=== PATIENT | male | born 2000 | race African-American/Black ===

== ENCOUNTER 2021-01-25 06:35 | Emergency (ER) | payer OTHER, SELFPAY ==
--- NOTE | 2021-01-25 | ECG_ITS ---
Test Reason : palpitations Blood Pressure : / mmHG Vent. Rate : 059 BPM Atrial Rate : 059 BPM P-R Int : 122 ms QRS Dur : 102 ms QT Int : 402 ms P-R-T Axes : 046 081 055 degrees QTc Int : 397 ms Sinus bradycardia Otherwise normal ECG No previous ECGs available Referred By: Benton Resendiz Electronically Signed By:YVONNE HERNANDEZ
--- NOTE | ~2021-01-25 | XR_ITS ---
EXAMINATION: XR CHEST CLINICAL INFORMATION: Cough COMPARISON: None TECHNIQUE: Frontal view of the chest was obtained. FINDINGS: The cardiac and mediastinal contours are normal. The lungs are well inflated. The lungs are clear. There is no pleural effusion or pneumothorax. Bony structures are unremarkable. XR/XR chest 1V IMPRESSION: Well-inflated lungs. No evidence for acute disease in the chest.
[2021-01-25 06:35] VITALS: BP 128/110; PULSE 93; O2SAT 95; BMI 21.7
--- NOTE | 2021-01-25 07:50 | ED.NAVMDI ---
HPI - Nausea/Vomiting/Diarrhea General Chief complaint: Nausea/Vomiting/Diarrhea Stated complaint: panic attack Time Seen by Provider: 01/25/21 07:46 Source: patient and EMS Mode of arrival: EMS Limitations: no limitations History of Present Illness HPI Narrative: This is a 20-year-old male came in for evaluation of persistent vomiting. This is a 20-year-old male who smokes marijuana and regular cigarettes daily, patient claimed that after he smokes marijuana he get this bodes of nausea and vomiting, patient came in today with nausea and vomiting with upper epigastric abdominal pain, patient also feels like his chest is closing up. In the emergency department patient was dry heaving, claimed that he vomited in the bathroom with streaks of blood, symptoms started last night after he smoked marijuana, patient declined using alcohol. Patient had 2 other episodes of similar symptoms over the past 3 weeks usually after he smokes marijuana. Related Data Allergies Allergy/AdvReac Type Severity Reaction Status Date / Time No Known Allergies Allergy Verified 01/25/21 07:49 Review of Systems Review of Systems: All other systems are reviewed and are negative Constitutional: Reports as per HPI and Reports no additional constitutional complaints Eyes: Reports as per HPI and Reports no additional eye complaints Reports system reviewed and no additional complaints, except as documented Cardiovascular: Reports as per HPI and Reports no additional cardiovascular complaints Respiratory: Reports as per HPI and Reports no additional respiratory complaints Gastrointestinal: Reports as per HPI and Reports no additional gastrointestinal complaints Genitourinary: Reports no additional female genitourinary complaints Musculoskeletal: Reports no additional musculoskeletal complaints Skin/Breast: Reports system reviewed and no additional complaints, except as docu Psychiatric: Reports no additional psychiatric complaints Endocrine: Reports no additional endocrine complaints Hematologic/Lymphatic: Reports no additional hematologic/lymphatic complaints Allergic/Immunologic: Reports no additional allergic/immunologic complaints Reports system reviewed and no additional complaints, except as documented and Reports Abnormal speech present [facility] Social History Social History Advance Directives: No Advance Directives Information Provided: No Physical Exam Vital Signs: Vital Signs: Last Vital Signs Pulse 72 01/25/21 13:51 Resp 18 01/25/21 14:00 BP 95/50 L 01/25/21 13:51 Pulse Ox 99 01/25/21 13:51 Body Mass Index 21.7 Vital signs have been reviewed as appeared to be correct. Blood pressure normal. Heart rate normal. Respiration rate normal. Temperature normal. Oxygen saturation normal. Appearance: Alert. Oriented X3. No acute distress. Head: Normal external exam. Normocephalic. Atraumatic. No Snatos signs noted. No raccoon eyes noted Eyes: PERRLA. EOMI. Conjunctiva and sclera normal. Eyelids normal. ENT: TM's Normal. Pharynx normal. Uvula midline. Moist mucous membranes. No trismus noted. No drooling noted. No muffled voice noted. Neck: Normal inspection. Neck supple. FROM. No adenopathy. Thyroid Normal. No meningeal signs. No neck mass noted. CVS: Normal heart rate and rhythm. Heart sound normal. No murmurs noted. Pulses normal throughout. Respiratory: No respiratory distress. Painless inspiration. Breath sounds normal. No wheezes/rales/rhonchi noted. Chest nontender. No accessory muscle usage noted or decreased air movement noted. Abdomen: Soft, mild tenderness over epigastric area, no guarding, no rebound.. Bowel sounds normal in all 4 quadrants. No distention noted. No organomegaly noted. No visible injury noted. Back: No CVA tenderness. Full range of motion noted. Skin: Skin warm and dry. Normal skin color. Normal skin turgor. No rashes/lesions/lacerations noted. Extremities: No lower extremity edema. Extremities exhibit normal range of motion. Extremities nontender. Neuro: Oriented X 3. No motor deficit. No sensory deficit. Reflexes normal. Course Course Course Narrative: Assessment and plan. A 20-year-old male came in with vomiting and feeling chest pain after smoking marijuana. Patient was observed in the emergency department for several hours had unremarkable labs, patient appeared very anxious patient refuse to keep the IV Hep-Lock while in the emergency department (do not like needles), patient was dry heaving keep complaining of chest pain, patient had an EKG was unremarkable, had (-) 2 troponins, a negative chest x-ray. Was given 1 mg of Ativan IV which finally helped to calm down the patient, patient is sleeping now, no vomiting. Patient declined SI or hallucination. Will discharge to follow-up with PCP. MDM - Nausea/Vomiting/Diarrhea Lab Data Attestation: I reviewed the patient's lab results. Result diagrams: 01/25/21 08:33 01/25/21 08:33 Labs: Lab Results 01/25/21 01/25/21 01/25/21 Range/Units 08:33 08:33 08:33 WBC 7.9 (4.8-10.8) X10*3/uL RBC 4.55 L (4.60-5.80) X10*6/uL Hgb 13.5 L (14.0-18.0) g/dl Hct 39.9 L (42-52) % MCV 87.7 (80-98) fL MCH 29.7 (27.0-33.0) pg MCHC 33.8 (31.0-36.0) g/dl RDW 13.1 (11.0-16.0) % Plt Count 228 (160-400) X10*3/uL MPV 9.6 (9.4-12.4) fL Immature Gran % (Auto) 0.3 (0.0-0.4) % Neut % (Auto) 71.0 (45-73) % Lymph % (Auto) 20.3 (20-40) % [place] % (Auto) 8.0 (2-11) % Eos % (Auto) 0.1 (0-4) % Baso % (Auto) 0.3 (0-2) % Lymph # (Auto) 1.6 (1.2-4.9) X10*3/uL [place] # (Auto) 0.6 (0.1-1.2) X10*3/uL Eos # (Auto) 0.0 (0.0-0.4) X10*3/uL Baso # (Auto) 0.0 (0.0-0.2) X10*3/uL Abs Immat Gran (auto) 0.02 (0.00-0.03) X10*3/uL Absolute Neuts (auto) 5.6 (2.0-8.3) X10*3/uL Absolute Nucleated RBC 0.000 (0.0-0.012) X10*3/uL Nucleated RBC % (auto) 0.0 (0.0-0.2) /100WBC Sodium 142 (135-145) mmol/L Potassium 3.6 (3.3-5.1) mmol/L Chloride 105 (96-108) mmol/L Carbon Dioxide 27 (22-29) mmol/L Anion Gap 14 (12-20) BUN 15 (9-16) mg/dL Creatinine 1.20 (0.5-1.4) mg/dL Estim Creat Clear Calc 101.6 Estimated GFR > 60 Random Glucose 97 (60-115) mg/dL Calcium 10.3 H (8.4-10.2) mg/dL Total Bilirubin 0.7 (0.0-1.0) mg/dL Direct Bilirubin 0.3 (0.0-0.5) mg/dL AST 18 (5-37) U/L ALT 11 (0-40) U/L Alkaline Phosphatase 83 (39-117) U/L Troponin I High Sens (<3.5-35.0) ng/L Total Protein 8.0 (6.5-8.0) g/dL Albumin 4.9 (3.5-5.0) g/dL Lipase 27 (8-78) U/L COVID-19 (ANGELICA) Negative (Negative) COVID-19 Clin Com See Note 01/25/21 01/25/21 Range/Units 08:33 12:18 WBC (4.8-10.8) X10*3/uL RBC (4.60-5.80) X10*6/uL Hgb (14.0-18.0) g/dl Hct (42-52) % MCV (80-98) fL MCH (27.0-33.0) pg MCHC (31.0-36.0) g/dl RDW (11.0-16.0) % Plt Count (160-400) X10*3/uL MPV (9.4-12.4) fL Immature Gran % (Auto) (0.0-0.4) % Neut % (Auto) (45-73) % Lymph % (Auto) (20-40) % [place] % (Auto) (2-11) % Eos % (Auto) (0-4) % Baso % (Auto) (0-2) % Lymph # (Auto) (1.2-4.9) X10*3/uL [place] # (Auto) (0.1-1.2) X10*3/uL Eos # (Auto) (0.0-0.4) X10*3/uL Baso # (Auto) (0.0-0.2) X10*3/uL Abs Immat Gran (auto) (0.00-0.03) X10*3/uL Absolute Neuts (auto) (2.0-8.3) X10*3/uL Absolute Nucleated RBC (0.0-0.012) X10*3/uL Nucleated RBC % (auto) (0.0-0.2) /100WBC Sodium (135-145) mmol/L Potassium (3.3-5.1) mmol/L Chloride (96-108) mmol/L Carbon Dioxide (22-29) mmol/L Anion Gap (12-20) BUN (9-16) mg/dL Creatinine (0.5-1.4) mg/dL Estim Creat Clear Calc Estimated GFR Random Glucose (60-115) mg/dL Calcium (8.4-10.2) mg/dL Total Bilirubin (0.0-1.0) mg/dL Direct Bilirubin (0.0-0.5) mg/dL AST (5-37) U/L ALT (0-40) U/L Alkaline Phosphatase (39-117) U/L Troponin I High Sens < 3.5 < 3.5 (<3.5-35.0) ng/L Total Protein (6.5-8.0) g/dL Albumin (3.5-5.0) g/dL Lipase (8-78) U/L COVID-19 (ANGELICA) (Negative) COVID-19 Clin Com Imaging Data Chest x-ray: Radiologist's impression: Well inflated lungs. No evidence for acute disease in the chest. ECG Data Interpretation: Normal sinus rhythm at 60 beats per minute, normal axis deviation, normal interval except slight widening of the QRS, no ST-T changes. Discharge Plan Discharge Clinical Impression: Anxiety Patient Disposition: Home, Self-Care Instructions: Anxiety in Adolescents (ED) Referrals: Physician,None [Primary Care Provider] - 2 days
[2021-01-25 08:00] VITALS: BP 102/67; PULSE 73; RESP 18; O2SAT 98
[2021-01-25] MEDS: ondansetron HCL 4 MG/2 ML VIAL IVPUSH (08:40)
[2021-01-25] MEDS: 0.9 % Sodium Chloride 1,000 ML 999 ML IVCONT (08:40)
[2021-01-25] MEDS: Magnesium Hydrox/Alum Hydrox 30 ML ORAL.SUSP PO (08:40)
[2021-01-25] MEDS: Famotidine/PF 20 MG/2 ML VIAL IVPUSH (08:40)
[2021-01-25 08:42] LABS: MANUAL DIFF FLAG NO
[2021-01-25 08:45] LABS: Basophils Percent Auto 0.3 % (0-2); Eosinophils Percent Auto 0.1 % (0-4); Hematocrit 39.9 % (42-52); Hemoglobin 13.5 g/dl (14.0-18.0); Imm Gran Abs Auto 0.02 X10*3/uL (0.00-0.03); Imm Gran Pct Auto 0.3 % (0.0-0.4); Lymphocytes Absolute Auto 1.6 X10*3/uL (1.2-4.9); Lymphocytes Percent Auto 20.3 % (20-40); Mean Corpuscular HGB Conc 33.8 g/dl (31.0-36.0); Mean Corpuscular Hemoglobin 29.7 pg (27.0-33.0); Mean Corpuscular Volume 87.7 fL (80-98); Mean Platelet Volume 9.6 fL (9.4-12.4); Monocytes Absolute Auto 0.6 X10*3/uL (0.1-1.2); Neutrophils Absolute Auto 5.6 X10*3/uL (2.0-8.3); Platelet Count 228 X10*3/uL (160-400); Red Blood Count 4.55 X10*6/uL (4.60-5.80); Red Cell Distribution Width 13.1 % (11.0-16.0); White Blood Count 7.9 X10*3/uL (4.8-10.8)
[2021-01-25 09:02] LABS: COVID-19 Test Negative (Negative)
[2021-01-25 09:07] LABS: Alanine Aminotransferase 11 U/L (0-40); Albumin Level 4.9 g/dL (3.5-5.0); Alkaline Phosphatase 83 U/L (39-117); Anion Gap 14 (12-20); Aspartate Amino Transferase 18 U/L (5-37); Bilirubin Direct 0.3 mg/dL (0.0-0.5); Bilirubin Total 0.7 mg/dL (0.0-1.0); Blood Urea Nitrogen 15 mg/dL (9-16); Calcium 10.3 mg/dL (8.4-10.2); Carbon Dioxide 27 mmol/L (22-29); Chloride 105 mmol/L (96-108); Creatinine Clr Calc Pharmacy 101.6; Estimated Glomerular Filt Rate > 60; Glucose Random 97 mg/dL (60-115); Lipase 27 U/L (8-78); Potassium 3.6 mmol/L (3.3-5.1); Sodium 142 mmol/L (135-145)
--- NOTE | 2021-01-25 11:21 | PC.NURSE ---
Pt states he does not want ativan at this time, MD aware. Pt states nausea is better, given small ammount of water for PO Challenge. Will continue to monitor.
[2021-01-25 12:11] LABS: Troponin-I High Sensitivity < 3.5 ng/L (<3.5-35.0)
[2021-01-25 12:49] LABS: Troponin-I High Sensitivity < 3.5 ng/L (<3.5-35.0)
[2021-01-25] MEDS: LORazepam 1 MG TABLET PO (12:52)
[2021-01-25 13:51] VITALS: BP 95/50; PULSE 72; RESP 17; O2SAT 99
[2021-01-25 14:00] VITALS: RESP 18
[2021-01-25 15:54] VITALS: BP 120/64; PULSE 82; RESP 20; TEMP 37.3; O2SAT 100
== END 2021-01-25 16:13 | disposition home or self-care (01) ==
PROVIDERS: Emergency Provider Emergency Medicine
DX: R11.2 Nausea with vomiting, unspecified (principal); F41.1 Generalized anxiety disorder; F43.0 Acute stress reaction; Z20.822 Contact with and (suspected) exposure to COVID-19
CPT/HCPCS: 36415; 71045; 80048; 80076; 83690; 84484; 85025; 87635; 93005; 96365; 96375; 99284; J2405

== ENCOUNTER 2021-01-26 10:05 | Emergency (ER) | payer OTHER, SELFPAY ==
[2021-01-26 10:23] VITALS: BP 129/68; BP 148/92; PULSE 61; PULSE 92; RESP 16; TEMP 36.6; O2SAT 98; BMI 18.6
--- NOTE | 2021-01-26 12:08 | PC.NURSE ---
PT CALLED IN FROM WAITING ROOM, PT UNDER BLANKET SLEEPING IN WAITING ROOM. PT WOKE UP EASILY THEN SLOWLY TOOK OFF HIS BLANKET AND SLOWLY WALKED AWKWARDLY THROUGH WAITING ROOM INTO [facility] BED. PT PACED FOR 2 MINUTES IN [facility] ROOM 4 BEFORE SITTING DOWN ON BED. PT ANSWERS QUESTIONS VERY QUIETLY AND ALMOST INCOMPREHENSIBLY DUE TO QUIET TONE OF VOICE. NO DIFF BREATHING, NO CYANOSIS, NO DIAPHORESIS, NO GUARDING NOTED. AWAITING PRIMARY EVAL BY PROVIDER.
--- NOTE | 2021-01-26 12:22 | ED_ITS ---
HPI - Chest Pain General Chief Complaint: Chest Pain Stated Complaint: diff breathing Time Seen by Provider: 01/26/21 12:22 Source: patient Mode of arrival: ambulatory Limitations: no limitations History of Present Illness HPI narrative: 20-year-old male who denies significant past medical or surgical history he does admit to heavy marijuana use recreationally. He comes in ambulatory today states he has been having numbness and tingling and anxious. States his episodes similar to several previous episodes where he will become overwhelmed and started to have panic like symptoms initially started when he was 18 years old and has been happening more frequently. Does admit to recently getting kicked out of [employer] due to marijuana use and due to the pandemic does not have a job he is constantly looking for interviews and does not want to let his family down states he is constantly thinking about the social burden and sometimes he feels or wound and will start to have panic attacks. States he was here yesterday for same; in fact he was here yesterday for chest pain he had a medical workup including chest x-ray, labs including serial troponin which were unremarkable he was given lorazepam and did well with this. He states he has a primary care doctor not sure what this is but is to [facility] and has not had any psychiatric providers or hospitalizations. He has been to the ER several times over the course of past 3 years. He denies any recent illness. He denies any SI or HI. Does not drink alcohol and denies any other illicit substance use. MD complaint: other (States he will get chest heaviness and numbness and tingling at the tip of his fingers Radha nose, lips and on his legs) Onset (ago): day(s) Onset: other (Emotional upset) Relieving factors: medication-other Exacerbating factors: stress Treatment prior to arrival: none Related Data Allergies Allergy/AdvReac Type Severity Reaction Status Date / Time No Known Allergies Allergy Verified 01/25/21 07:49 Review of Systems Review of Systems: Constitutional: No Weight loss, No Fever, No Chills, No Night Sweats, No Fatigue, No Malaise ENT/Mouth: No Hearing loss, No Ear Pain, No Nasal Congestion, No Sinus Pain, No Hoarseness, No sore throat, No Rhinorrhea, No Swallowing Difficulty Eyes: No Eye Pain, No Swelling, No Redness, No Foreign Body, No Discharge, No Vision Changes Cardiovascular: No Chest Pain, No SOB, No Dyspnea on Exertion, No Orthopnea, No Edema, No Palpitations Respiratory: No Cough, No Sputum, No Wheezing, No Smoke Exposure, No Dyspnea Gastrointestinal: No Nausea, No Vomiting, No Diarrhea, No Constipation, No abdominal Pain, No Hematochezia, No Melena Genitourinary: no irregular bleeding, No Dysuria, No Urinary Frequency, No Hematuria, No Urinary Incontinence, No Urgency, No Flank Pain, No Urinary Flow Changes, No Hesitancy Musculoskeletal: No joint pain, No Myalgias, No Joint Swelling Skin: No Skin Lesions, No rash Neuro: No Weakness, No Numbness, No Paresthesias, No Loss of Consciousness, No Dizziness, No Headache Psych: As noted per HPI Heme/Lymph: No Bruising, No Bleeding,No Lymphadenopathy Endocrine: No Polyuria, No Polydipsia, No Temperature Intolerance Yes all other systems are reviewed and are negative [facility] Social History Social History Advance Directives: No Advance Directives Information Provided: No Physical Exam Vital Signs: Vital Signs: Last Vital Signs Temp 98 F 01/26/21 10:23 Pulse 61 01/26/21 10:23 Resp 16 01/26/21 10:23 BP 129/68 01/26/21 10:23 Pulse Ox 98 01/26/21 10:23 Body Mass Index 18.6 Reviewed Const: Other: Found 20-year-old male with a stuffed animal sitting in the bed twitching his hands and feet. General: cooperative, healthy appearing and anxious; No acute distress or intoxicated appearing Nutritional Appearance: average body habitus Orientation/consciousness: patient oriented x3 HENMT: Head: Yes normal to inspection Ears: hearing grossly normal bilaterally Eyes: General: appearance normal, both eyes and all related structures Visual Truong: normal visual truong by confrontation Neck: Neck: Yes normal visual inspection, No positive Brudzinski's sign, No positive Kernig's sign and No tender Thyroid: Thyroid normal Chest: Chest palpation & inspection: normal inspection of the chest Resp: Effort & Inspection: normal respiratory effort Auscultation: clear to auscultation bilaterally Cardio: Jugular venous distension: no JVD Rhythm: regular rhythm Heart sounds: S1 normal heart sound present and S2 normal heart sound present GI: Inspection: Yes normal to inspection Percussion: Yes normal to percussion Auscultation: normal bowel sounds : General: Yes no CVA tenderness Back/Spine/Pelvis: Back: no CVA tenderness Skin: General skin exam: no rashes or lesions noted Neuro: General: patient oriented x3 Extrem: General: Yes normal to inspection Course Course Course Narrative: Repeat exam consistent with anxiety about both health and social stressors descriptive consistent with panic attacks. Lab work including EKG, chest x-ray reviewed from previous visit given his concern about health I will get screening labs he is very anxious provided reassurance and okay with trialing hydroxyzine 50 mg. He denies any SI or HI. Contracts for safety. I will contact care team for evaluation. Reevaluation(s) Reevaluation #1: friend showed up at bedside care team Abdi met with the patient recommendation for outpatient services and referred to partial program. Soon after his evaluation Abdi patient was noted to walk towards the exit with family prior to discharge and labs. Consultations Consultation #1: Care team Discharge Plan Discharge Clinical Impression: Acute anxiety Patient Disposition: Elopement Interventions: ED Discharge Assessment Last Done: 01/26/21 13:28 Discharge Date/Time: 01/26/21 13:28
[2021-01-26] MEDS: hydrOXYzine HCL 50 MG TABLET PO (13:01)
--- NOTE | 2021-01-26 13:17 | PC.NURSE ---
THIS RN MEDICATED PATIENT WHILE PATIENT AND VISITOR WERE TALKING TO CARE TEAM. THIS RN WENT BACK INTO ROOM 10 MINUTES LATER AND PATIENT WAS GONE. PT WAS SEEN WALKING OUT FRONT DOOR WITH VISITOR AND DID NOT NOTIFY ANYONE HE WAS LEAVING.
--- NOTE | 2021-01-26 13:42 | MHC.CARE ---
1240: Met with pt and pt's Father Clay Tsang Sr at the request of NATY Trent. Pt reports having been experiencing a great deal of pressure lately having been recently terminated from [employer] for smoking marijuana, having issues with a female, conflict with [employer] staff. Pt appears to be experiencing anxiety symptoms and was at the [facility] today for what looked like a panic attack. Pt has experienced these before, recently with the most recent two coming shortly after consuming marijuana secured through traditional means from street contacts. Pt has been referred to [facility] for the purpose of securing a counselor and regular counseling sessions. Pt's Father appears to be supportive of this.
== END 2021-01-26 13:28 | disposition left against medical advice (07) ==
PROVIDERS: Emergency Provider Emergency Medicine
DX: F41.9 Anxiety disorder, unspecified (principal); F12.90 Cannabis use, unspecified, uncomplicated
CPT/HCPCS: 99283

== ENCOUNTER 2021-02-04 22:53 | Emergency (ER) | payer OTHER, SELFPAY ==
[2021-02-04 23:03] VITALS: BP 137/90; PULSE 78; O2SAT 100
[2021-02-04 23:15] VITALS: BP 112/68; PULSE 64; RESP 20; TEMP 36.6; O2SAT 100; BMI 16.7
--- NOTE | 2021-02-04 23:52 | ED.ANXIETY ---
HPI - Anxiety General Chief Complaint: Anxiety Stated Complaint: LT WRIST AND BACK PAIN Time Seen by Provider: 02/04/21 23:34 Source: patient Mode of arrival: ambulatory Limitations: no limitations History of Present Illness HPI narrative: Patient is a 20-year-old male with no significant past medical history who is complaining of feeling short of breath and left-sided back pain. Patient reported to the nurse that he ?feels this way every night at 21:00 , it is when the beast comes out . Patient does admit to smoking cigarettes and marijuana randomly but he states he has this pain even when he is not smoking anything. He describes feeling short of breath is when he takes a deep breath and it is painful. He denies chest pain, abdominal pain, nausea vomiting diarrhea. Denies SI/HI. Pt states we gave him a pill with an off button on it last time he was here and he doesn't want it this time. Related Data Allergies Allergy/AdvReac Type Severity Reaction Status Date / Time No Known Allergies Allergy Verified 01/25/21 07:49 Review of Systems Review of Systems: Yes all other systems are reviewed and are negative [facility] Social History Social History Advance Directives: No Physical Exam Vital Signs: Vital Signs: Last Vital Signs Temp 97.8 F 02/04/21 23:15 Pulse 64 02/04/21 23:15 Resp 20 02/04/21 23:15 BP 112/68 02/04/21 23:15 Pulse Ox 100 02/04/21 23:15 Body Mass Index 16.7 Const: Other: Pt is pacing throughout our discussion. General: cooperative, healthy appearing, comfortable, no acute distress and well developed Orientation/consciousness: patient oriented x3 Limitations: no limitations HENMT: Head: Yes normal to inspection Eyes: General: appearance normal, both eyes and all related structures Neck: Neck: Yes normal visual inspection and Yes full ROM Resp: Effort & Inspection: normal respiratory effort and able to speak in complete sentences Auscultation: clear to auscultation bilaterally Cardio: Rate: regular rate Rhythm: regular rhythm Heart sounds: normal S1 and S2 GI: Inspection: Yes normal to inspection Skin: General skin exam: no rashes or lesions noted Neuro: General: patient oriented x3 Extrem: General: Yes normal to inspection Course Course Course Narrative: Patient is a 20-year-old male with no significant past medical history who comes in complaining of pain with deep inspiration and left-sided back pain. Patient was evaluated in this ED on 01/25/2021 and 01/26/2021 and diagnosed with anxiety. He had a full workup on 01/25/2021 including a chest x-ray and labs and COVID tests, all of which were negative or within normal limits. I am not going to repeat any of these tonight. Patient's vital signs are stable, lung sounds are clear and patient is very well-appearing however he is pacing back and forth. Patient is refusing hydroxyzine because he is afraid to take the medication. Patient is agreeable to having a headache from the care team speak to him about finding a therapist to teach him with coping mechanisms to deal with his anxiety as he is not interested in taking any kinds of medications to manage his anxiety. Consult to the care team placed. Reevaluation(s) Reevaluation #1: Leilani from the care team spoke with patient at length, patient apparently had some family members who which may be contributing to his anxiety. Have encouraged him to obtain a primary care doctor to go to as well as [facility] for counseling. No concerns for SI or HI, will discharge patient home. Time: 01:15 Discharge Plan Discharge Clinical Impression: Acute anxiety Patient Disposition: Home, Self-Care Instructions: Anxiety in Adolescents (ED) Additional Instructions: As discussed, I think you would benefit from talk therapy with a trained therapist to continue to coping mechanisms to deal with your anxiety. Referrals: Kenia Cole, [employer] [License Clinical Department Store General Manager] - 2 days (anxiety)
[2021-02-05] VITALS: RESP 16
--- NOTE | 2021-02-05 00:42 | PC.NURSE ---
care team is at bedside at this time
--- NOTE | 2021-02-05 01:45 | MHC.CARE ---
CARE team consult received for 20 year old black male who arrived via EMS for somatic complaints associated with anxiety. Pt had similar presentation to ED on 01/25/2021. Pt shared that he stopped using marijuana approx. 2 weeks ago, admitting that the onset of these symptoms was shortly after. This narrative writer spoke with pt about marijuana withdrawal increasing anxiety, loss of appetite, poor sleep, and can induce some psychosis. Pt reported that he had lost weight and hadn't been eating much, but that his appetite has been improving over the past two days. Pt also shared that his godmother, whom he lives with, is likely to be diagnosed with cancer, and has been thinking about hers and other family members' substance use habits. Pt expressed feeling that those things could also be wrong with him. This narrative writer recommended to pt that he see a primary care doctor in order to do a comprehensive family history, discuss symptoms, and complete testing and lab work to rule out anything of concern and for ongoing assessment. Pt agreeable to this and accepted information for [facility]. This narrative writer also recommended working with a therapist to process through pt's complicated relationships and interactions with family members, which pt was hesitant to but accepted information and gave permission to refer. Discussed consult and recommendations with ED provider.
== END 2021-02-05 01:20 | disposition home or self-care (01) ==
PROVIDERS: Emergency Provider Internal Medicine
DX: F41.9 Anxiety disorder, unspecified (principal)
CPT/HCPCS: 99284

== ENCOUNTER 2021-03-14 10:04 | Emergency (ER) | payer OTHER, SELFPAY ==
--- NOTE | ~2021-03-14 | XR_ITS ---
EXAMINATION: XR CHEST CLINICAL INFORMATION: Right cough. COMPARISON: None TECHNIQUE: Frontal view of the chest was obtained. FINDINGS: No significant abnormality is noted involving the heart, lungs, mediastinum, bony thorax or soft tissues. XR/XR chest 1V IMPRESSION: Unremarkable chest examination.
[2021-03-14 10:27] VITALS: BP 143/65; PULSE 88; RESP 18; TEMP 36.8; O2SAT 98; BMI 18.6
[2021-03-14 10:37] VITALS: BP 133/63; PULSE 73; RESP 15; TEMP 36.9; O2SAT 99
--- NOTE | 2021-03-14 11:24 | ED_ITS ---
HPI - URI/Sore Throat General Chief Complaint: General Medical Stated Complaint: coughing up blood Time Seen by Provider: 03/14/21 10:29 Source: patient Mode of arrival: ambulatory Limitations: no limitations History of Present Illness HPI Narrative: 21-year-old male with no past medical history presenting to the ED with complaints of 2 days of chills, subjective fevers, runny nose/nasal congestion, sore throat/itchy nose and a dry cough. Reports that someone came to work with similar symptoms. He denies any measured fevers, headaches, dizziness, nausea/vomiting, neck pain/stiffness, sputum production, chest pain, dyspnea on exertion, orthopnea, palpitations, abdominal pain, nausea/vomiting/diarrhea, dysuria or any other symptoms complaints or concerns at this time. MD elicited complaint: cough, sore throat, rhinorrhea and nasal congestion Onset (ago): day(s) (Two days) Consistency: constant and progressively worsening Severity: mild Description of mucous: clear, watery, yellow and other (Streaks of blood when he blows his nose) Able to tolerate fluids by mouth: Yes Exacerbating factors: swallowing Relieving factors: nothing Context: sick contacts Associated symptoms: denies other symptoms Treatments prior to arrival: none Related Data Previous Rx's Medication Instructions Recorded acetaminophen [Tylenol Extra 1,000 mg PO QID PRN #14 tab 03/14/21 Strength] azithromycin See Rx Instructions .ROUTE 03/14/21 .COMPLEX #6 tab ibuprofen 800 mg PO Q8H PRN #14 tab 03/14/21 Allergies Allergy/AdvReac Type Severity Reaction Status Date / Time No Known Allergies Allergy Verified 01/25/21 07:49 Review of Systems Review of Systems: Constitutional : Positive subjective Fever, positive Chills, No fatigue, No Malaise ENT/Mouth : Positive sore throat, positive runny nose Eyes: No Discharge Cardiovascular : No Chest Pain, No SOB Respiratory : Positive Cough, No Sputum, No Wheezing, No Smoke Exposure, No Dyspnea Gastrointestinal : No Nausea, No Vomiting, No Diarrhea Genitourinary : No irregular bleeding, No Dysuria, No Urinary Frequency, No Hematuria, No Urinary Incontinence, No Urgency, No Flank Pain, Musculoskeletal : No Myalgia Skin : No rash Neuro : No Headache Yes all other systems are reviewed and are negative PMFSH Past Medical History Attestation statement: The following information was validated with the patient. Social History Social History Advance Directives: No Advance Directives Information Provided: No Physical Exam Vital Signs: Vital Signs: Last Vital Signs Temp 98.5 F 03/14/21 10:37 Pulse 73 03/14/21 10:37 Resp 15 03/14/21 10:37 BP 133/63 03/14/21 10:37 Pulse Ox 99 03/14/21 10:37 Body Mass Index 18.6 vital signs have been reviewed as normal and appeared to be correct. Blood pressure normal. Heart rate normal. Respiration rate normal. Temperature n ormal. Oxygen saturation normal. Appearance: Alert. Oriented X3. No acute distress. Head: Normal external exam. Normocephalic. Atraumatic. Eyes: PERRLA. EOMI. Conjunctiva and sclera normal. Eyelids normal. ENT: EAC normal. TM's Normal. Pharynx normal. Uvula midline. Moist mucous membranes. No trismus noted. No drooling noted. No muffled voice noted. Neck: Normal inspection. Neck supple. FROM. No adenopathy. Thyroid Normal. No meningeal signs. No neck mass noted. CVS: Normal heart rate and rhythm. Heart sound normal. Pulses normal throughout. No murmurs/rales/gallops. Respiratory: No respiratory distress. Painless inspiration. Breath sounds normal. No wheezes/rales/rhonchi noted. Chest nontender. No accessory muscle usage noted or decreased air movement noted. Back: Full range of motion noted. No rashes/lesion/induration/fluctuance or signs of infection noted. Skin: Skin warm and dry. Normal skin color. Normal skin turgor. No rashes/lesions/lacerations noted. Extremities: No lower extremity edema noted. Extremities exhibit normal range of motion. Extremities nontender. Neuro: Oriented X 3. No motor deficit. No sensory deficit. Reflexes normal. Normal steady gait. No focal neuro deficits noted. Vascular: + radial pulses/+ 2 distal pedal pulses/+2 dorsalis pedis b/l. Normal cap refill. No cyanosis noted to upper extremity nails and lower extremity toes nails. Course Course Course Narrative: 21-year-old male with most likely sinusitis/upper respiratory infection. Chest x-ray negative for any acute processes. COVID/RSV/flu pending at this time. Will DC home with antibiotics and symptomatic treatment. Along with instructions follow-up with primary care provider. Patient understands agrees with this plan. MDM - URI/Sore Throat Medical Records Attestation: I reviewed the patient's medical records. Lab Data Attestation: I reviewed the patient's lab results. Discharge Plan Discharge Clinical Impression: Upper respiratory infection Patient Disposition: Home, Self-Care Instructions: Upper Respiratory Infection (ED) Additional Instructions: Based on your symptoms and history we have sent a COVID-19. Although your RESULT IS PENDING at this time. RESULTS should return within 2-4 hours. At this time you will be contacted with either NEGATIVE OR POSITIVE results. -Please wait until we contact you for your results. At this time you will be okay for discharge. Please plan for self quarantine for up to 14 days. Do not expose yourself to others. You may not go to work. If testing does come back negative you may return to activities as long as you are no longer having any symptoms for at least 3 days. Please continue to follow cold instructions and wash your hands frequently. You may take Tylenol as directed on the bottle for pain or fever. Patient seen in the emergency department on 03/14/2021 and should be excused from work until negative test results AND until 72 hours without any symptoms AND at least 10 days have passed since symptoms first appeared or since last exposure to COVID-19 positive patient CDC Guidelines for home isolation: - Stay away from others - WEAR A MASK if you are sick AND STAY HOME - Cover your mouth and nose with a tissue when you cough or sneeze. Dispose of tissues in a lined trash can and wash your hands immediately with soap and water for at least 20 seconds. If soap and water are not available, clean hands with alcohol-based hand car barn laborer that contains at least 60% alcohol. - Clean your hands often with soap and water for at least 20 seconds - Avoid touching your eyes, nose and mouth with unwashed hands - Do not share dishes, drinking glasses, cups, eating utensils, towels, or bedding with other people in your home. After using these items, wash them thoroughly with soap and water or put in the director of special events. - Clean high-touch surfaces in your isolation area ( sick room and bathroom) every day; let a caregiver clean and disinfect high-touch surfaces in other areas of the home. Clean the area or item with soap and water or another detergent if it is dirty. Then, use a household disinfectant. - Limit contact with pets and animals: If you must care for a pet, wash your hands before and after interacting with them). Prescriptions: New azithromycin 250 mg tablet See Rx Instructions .ROUTE .COMPLEX Qty: 6 RF: 0 ibuprofen 800 mg tablet 800 mg PO Q8H PRN (Reason: pain) Qty: 14 RF: 0 acetaminophen [Tylenol Extra Strength] 500 mg tablet 1,000 mg PO QID PRN (Reason: fever or pain) Qty: 14 RF: 0 Referrals: Physician,None [Primary Care Provider] - 2 days (your pcp) Stand Alone Forms: Work/School Release Print Language: Nepalese
[2021-03-14 11:39] LABS: Influenza A PCR NEGATIVE (Negative); Influenza B PCR NEGATIVE (Negative); Resp Syncy Virus RNA Qual PCR NEGATIVE (Negative); SARS COV2 PCR INHOUSE NEGATIVE (Negative)
== END 2021-03-14 11:44 | disposition home or self-care (01) ==
PROVIDERS: Physician Assistant Medical; Emergency Provider Emergency Medicine
DX: J06.9 Acute upper respiratory infection, unspecified (principal); Z20.822 Contact with and (suspected) exposure to COVID-19
CPT/HCPCS: 0241U; 36415; 71045; 99283

== ENCOUNTER 2021-06-17 16:31 | Emergency (ER) | payer OTHER, SELFPAY ==
--- NOTE | ~2021-06-17 | XR_ITS ---
EXAMINATION: XR CHEST CLINICAL INFORMATION: Chest pain and hemoptysis. COMPARISON: 03/14/2021 TECHNIQUE: 2 views of the chest were obtained. FINDINGS: No significant abnormality is noted involving the heart, lungs, mediastinum, bony thorax or soft tissues. XR/XR chest 2V IMPRESSION: Unremarkable examination.
--- NOTE | ~2021-06-17 | CT_ITS ---
EXAMINATION: CT ANGIOGRAM OF THE CHEST WITH AND WITHOUT CONTRAST (CT PULMONARY ANGIOGRAM FOR PE) CLINICAL INFORMATION: Reason for Exam Right-sided chest pain, hemoptysis, rule out PE COMPARISON: None TECHNIQUE: Prior to contrast administration, noncontrast localization images were obtained. Subsequently, multidetector volumetric imaging was performed from the thoracic inlet to below the diaphragms following the administration of 58 mL Omnipaque 350 intravenous contrast. No contrast reaction reported Sagittal, coronal, and MIP oblique sagittal reformatted images were obtained on the CT workstation, uploaded to PACS, and reviewed. This CT examination was performed using dose optimization techniques as appropriate, variously including the following: *Automated exposure control *Adjustment of mA and/or kV according to patient size (this includes techniques or standardized protocols for targeted exams where dose is matched to indication/reason for exam; i.e. extremities or head) *Use of iterative reconstruction technique Total exam dose-length product 249 mGy-cm FINDINGS: QUALITY OF STUDY/CONTRAST BOLUS: Suboptimal. The aorta and the pulmonary veins are better opacified than the pulmonary arteries. PULMONARY ARTERIES: No large central or large proximal segmental pulmonary emboli. THORACIC AORTA: No aneurysm or dissection. 2 vessel branching pattern of the arch is present with common trunk of the innominate and left carotid. LUNG: No focal consolidation, nodules or masses. PLEURA: No pleural effusion or pneumothorax. MEDIASTINUM: Normal heart size. No pericardial effusion. No hilar or mediastinal lymphadenopathy. No evidence of septal bowing or right heart strain. CHEST WALL/AXILLA: No axillary or internal mammary lymphadenopathy. OSSEOUS STRUCTURES: No acute or suspicious osseous abnormality. UPPER ABDOMEN: Unremarkable. No reflux of contrast into the hepatic veins to suggest elevated right heart pressures. CT/CT angio chest PE protocol IMPRESSION: No large central pulmonary emboli. Study is suboptimal as described above. If exclusion of smaller pulmonary emboli is essential, a repeat study or VQ scan is recommended for further evaluation. VTE: indeterminate This critical result was discussed with Dr. Townsend at 10:10 PM on the evening of the exam and it was ascertained that the content and urgency of the report was understood at the time of direct communication.
[2021-06-17 18:14] VITALS: BP 125/76; PULSE 95; RESP 18; TEMP 36.9; O2SAT 99; BMI 19.1
[2021-06-17 18:35] LABS: MANUAL DIFF FLAG NO
[2021-06-17 18:37] LABS: Basophils Percent Auto 0.4 % (0-2); Eosinophils Absolute Auto 0.1 X10*3/uL (0.0-0.4); Eosinophils Percent Auto 1.3 % (0-4); Hematocrit 43.1 % (42-52); Hemoglobin 14.6 g/dl (14.0-18.0); Imm Gran Abs Auto 0.01 X10*3/uL (0.00-0.03); Imm Gran Pct Auto 0.2 % (0.0-0.4); Lymphocytes Absolute Auto 1.9 X10*3/uL (1.2-4.9); Lymphocytes Percent Auto 35.8 % (20-40); Mean Corpuscular HGB Conc 33.9 g/dl (31.0-36.0); Mean Corpuscular Hemoglobin 29.9 pg (27.0-33.0); Mean Corpuscular Volume 88.1 fL (80-98); Mean Platelet Volume 9.2 fL (9.4-12.4); Monocytes Absolute Auto 0.4 X10*3/uL (0.1-1.2); Monocytes Percent Auto 7.8 % (2-11); Neutrophils Absolute Auto 2.9 X10*3/uL (2.0-8.3); Neutrophils Percent Auto 54.5 % (45-73); Platelet Count 239 X10*3/uL (160-400); Red Blood Count 4.89 X10*6/uL (4.60-5.80); Red Cell Distribution Width 12.4 % (11.0-16.0); White Blood Count 5.3 X10*3/uL (4.8-10.8)
[2021-06-17 18:54] LABS: Anion Gap 12 (12-20); Blood Urea Nitrogen 13 mg/dL (9-16); COVID-19 Test Negative (Negative); Calcium 10.3 mg/dL (8.4-10.2); Carbon Dioxide 29 mmol/L (22-29); Chloride 106 mmol/L (96-108); Creatinine Clr Calc Pharmacy 96.1; Estimated Glomerular Filt Rate > 60; Glucose Random 90 mg/dL (60-115); IDNOW Serial# 9DD0AD1C; Potassium 3.9 mmol/L (3.3-5.1); Sodium 143 mmol/L (135-145)
[2021-06-17 21:09] VITALS: BP 139/64; PULSE 65; RESP 18; TEMP 36.6; O2SAT 97
--- NOTE | 2021-06-17 21:17 | ED.GENADULT ---
HPI - General Adult General Chief complaint: General Medical Stated complaint: flu like Time Seen by Provider: 06/17/21 21:01 Source: patient Mode of arrival: ambulatory Limitations: no limitations History of Present Illness HPI narrative: 21-year-old male who presents emergency department for evaluation of hemoptysis and hematemesis over the past 5-6 days. Patient states that 5 days prior he had 1 episode of vomiting and states that he vomited up a small amount of bright red blood. He states that he has had 2 more episodes of vomiting with no hematemesis. Patient states that he has been coughing occasionally and that on several times he has brought up a small amount of blood (dime-sized). He states that he has felt hot and cold at home but did not take his temperature. He denied shaking chills. He complained of intermittent right-sided pleuritic chest pain. He denied shortness of breath or dyspnea on exertion. He states he has had a 20 lb unintentional weight loss over the past 6 months. He has had no change in his bowel movements, he has not noticed any blood per rectum or dark tarry stools. The patient is a former smoker any stop smoking 3 months prior, he states that he smoked for 4 years. Patient states that he did use marijuana in the past but stopped 4 months prior since he was having panic attacks. He denies any other drug use. The patient denies any pain or swelling in his lower extremities. He has not gone on a long trips. The patient has been vaccinated with to COVID-19 shots ([employer]). Related Data Previous Rx's Medication Instructions Recorded acetaminophen 500 mg tablet 1,000 mg PO QID PRN #14 tab 03/14/21 (Tylenol Extra Strength) azithromycin 250 mg tablet See Rx Instructions .ROUTE 03/14/21 .COMPLEX #6 tab ibuprofen 800 mg tablet 800 mg PO Q8H PRN #14 tab 03/14/21 doxycycline hyclate 100 mg tablet 100 mg PO Q12H 10 Days #20 tab 06/17/21 doxycycline hyclate 100 mg tablet 100 mg PO BID 10 Days #20 tab 06/18/21 Allergies Allergy/AdvReac Type Severity Reaction Status Date / Time No Known Allergies Allergy Verified 06/17/21 18:13 Review of Systems Review of Systems: Yes all other systems are reviewed and are negative [facility] Social History Social History Advance Directives: No Advance Directives Information Provided: No Physical Exam Vital Signs: Vital Signs: Last Vital Signs Temp 97.9 F 06/17/21 21:09 Pulse 65 06/17/21 21:09 Resp 18 06/17/21 21:09 BP 139/64 06/17/21 21:09 Pulse Ox 97 06/17/21 21:09 Body Mass Index 19.1 Const: General: cooperative and no acute distress Orientation/consciousness: oriented to person and oriented to place Limitations: no limitations HENMT: Head: Yes normal to inspection, Yes normocephalic and Yes atraumatic Ears: external ears normal General nose exam: Normal external nose present Face and sinus: Yes normal facial exam Mouth: Normal oral and palatal mucosa present Throat: Yes posterior oropharynx normal Eyes: General: appearance normal, both eyes and all related structures Pupils: Equal, round and reactive pupils present Neck: Neck: Yes normal visual inspection, Yes no lymphadenopathy, Yes trachea midline and Yes supple Chest: Chest palpation & inspection: normal inspection of the chest and normal palpation of entire chest wall Resp: Effort & Inspection: normal respiratory effort and able to speak in complete sentences Auscultation: clear to auscultation bilaterally Cardio: Rate: regular rate Rhythm: regular rhythm Heart sounds: S1 normal heart sound present, S2 normal heart sound present and no murmurs GI: Inspection: Yes normal to inspection Palpation (GI): Soft to palpation, nontender and no guarding Auscultation: normal bowel sounds : General: Yes no CVA tenderness Back/Spine/Pelvis: Back: no CVA tenderness Skin: General skin exam: no rashes or lesions noted Neuro: General: oriented to person and oriented to place Cranial nerves: Yes CN's II-XII intact bilaterally and Yes Equal, round and reactive pupils present Cognition (Neuro): normal cognition Motor exam (neuro): 5/5 motor strength present throughout Extrem: General: Yes normal to inspection Psych: Appearance: grossly normal Speech and movement: Normal speech and movement present Affect: normal affect Attitude: cooperative Thought process: Normal thought process present Thought content: Normal thought content present Course Course Course Narrative: 21-year-old male who presents emergency department for evaluation of 1 episode of hematemesis in several episodes of hemoptysis with a past 4-5 days. He has felt hot and cold but denied chills. The patient complains of intermittent right-sided pleuritic chest pain, he denies shortness of breath or dyspnea on exertion. He states he has had an unintentional 20 lb weight loss over the past 6 months. The patient is PERC positive secondary to his hemoptysis. Given the above symptoms, I ordered a a CT pulmonary angiogram to rule out PE and other cause of possible hemoptysis. 2129: The patient's CBC and CMP were unremarkable. COVID-19 test was negative. 2354: The patient's CT pulmonary angiogram PE protocol did not reveal any large PEs, there are no other lung abnormalities to explain the patient's hemoptysis. I did discuss this with the patient. The patient will be treated for possible bronchitis is the cause of his hemoptysis. He was started on doxycycline 100 mg twice a day for 10 days. He was given his 1st dose in the emergency department. He was discharged home. The patient was given verbal and printed instructions prior to discharge. The patient was advised to follow-up with his PCP in 2 days and to return to the emergency department if his symptoms get worse or if he develops any new symptoms that are concerning to him. Medical Decision Making Lab Data Result diagrams: 06/17/21 18:27 06/17/21 18:27 Labs: Lab Results 06/17/21 06/17/21 06/17/21 Range/Units 18:27 18:27 18:27 WBC 5.3 (4.8-10.8) X10*3/uL RBC 4.89 (4.60-5.80) X10*6/uL Hgb 14.6 (14.0-18.0) g/dl Hct 43.1 (42-52) % MCV 88.1 (80-98) fL MCH 29.9 (27.0-33.0) pg MCHC 33.9 (31.0-36.0) g/dl RDW 12.4 (11.0-16.0) % Plt Count 239 (160-400) X10*3/uL MPV 9.2 L (9.4-12.4) fL Immature Gran % (Auto) 0.2 (0.0-0.4) % Neut % (Auto) 54.5 (45-73) % Lymph % (Auto) 35.8 (20-40) % [place] % (Auto) 7.8 (2-11) % Eos % (Auto) 1.3 (0-4) % Baso % (Auto) 0.4 (0-2) % Lymph # (Auto) 1.9 (1.2-4.9) X10*3/uL [place] # (Auto) 0.4 (0.1-1.2) X10*3/uL Eos # (Auto) 0.1 (0.0-0.4) X10*3/uL Baso # (Auto) 0.0 (0.0-0.2) X10*3/uL Abs Immat Gran (auto) 0.01 (0.00-0.03) X10*3/uL Absolute Neuts (auto) 2.9 (2.0-8.3) X10*3/uL Absolute Nucleated RBC 0.000 (0.0-0.012) X10*3/uL Nucleated RBC % (auto) 0.0 (0.0-0.2) /100WBC Sodium 143 (135-145) mmol/L Potassium 3.9 (3.3-5.1) mmol/L Chloride 106 (96-108) mmol/L Carbon Dioxide 29 (22-29) mmol/L Anion Gap 12 (12-20) BUN 13 (9-16) mg/dL Creatinine 1.14 (0.5-1.4) mg/dL Estim Creat Clear Calc 96.1 Estimated GFR > 60 Random Glucose 90 (60-115) mg/dL Calcium 10.3 H (8.4-10.2) mg/dL COVID-19 (AGNELICA) Negative (Negative) COVID-19 Clin Com See Note Discharge Plan Discharge Clinical Impression: Cough with hemoptysis Acute bronchitis Qualifiers: Bronchitis organism: unspecified organism Qualified Code(s): J20.9 - Acute bronchitis, unspecified Patient Disposition: Home, Self-Care Instructions: Acute Bronchitis (ED), Hemoptysis (ED) Additional Instructions: Your blood work was normal. Your COVID-[address] The [address] pulmonary angiogram of your chest did not reveal any large blood clots or abnormalities of your lungs that is causing you to cough up blood, this is reassuring. I suspect that you may have bronchitis which is an infection of your breathing tubes. I am going to treat you with the antibiotic doxycycline 100 mg pills, 1 pill every 12 hours for 10 days. Follow-up with your doctor in 2 days. Please return to the emergency department if your symptoms get worse or if you develop any symptoms that are concerning to you. Prescriptions: New doxycycline hyclate 100 mg tablet 100 mg PO Q12H 10 Days Qty: 20 RF: 0 doxycycline hyclate 100 mg tablet 100 mg PO BID 10 Days Qty: 20 RF: 0 No Action azithromycin 250 mg tablet See Rx Instructions .ROUTE .COMPLEX Qty: 6 RF: 0 ibuprofen 800 mg tablet 800 mg PO Q8H PRN (Reason: pain) Qty: 14 RF: 0 acetaminophen [Tylenol Extra Strength] 500 mg tablet 1,000 mg PO QID PRN (Reason: fever or pain) Qty: 14 RF: 0
[2021-06-17] MEDS: iohexoL 350 MG/ML 100 ML INFUS..BTL IV (21:46)
--- NOTE | 2021-06-17 21:47 | PC.NURSE ---
iv placed to lac, Pt to CT in stretcher. will continue to monitor pt.
== END 2021-06-18 00:17 | disposition home or self-care (01) ==
PROVIDERS: Emergency Provider Emergency Medicine Emergency Medical Services
DX: J20.9 Acute bronchitis, unspecified (principal); R05 Cough; Z87.891 Personal history of nicotine dependence; Z79.899 Other long term (current) drug therapy; Z20.822 Contact with and (suspected) exposure to COVID-19
CPT/HCPCS: 36415; 71046; 71275; 80048; 85025; 87635; 99283; 99284; Q9967

== ENCOUNTER 2021-07-28 12:17 | Outpatient (REF) | payer OTHER, SELFPAY ==
[2021-07-28 12:41] LABS: COVID-19 Test Negative (Negative)
== END 2021-07-28 12:18 | disposition home or self-care (01) ==
LOC: HO.LAB 12:17
PROVIDERS: Visit Provider Internal Medicine
DX: Z20.822 Contact with and (suspected) exposure to COVID-19 (principal)
CPT/HCPCS: 36415; 87635; C9803

== ENCOUNTER 2023-11-24 19:34 | Emergency (ER) | payer OTHER, SELFPAY ==
[2023-11-24 19:51] VITALS: BP 135/67; PULSE 69; RESP 16; TEMP 36.8; O2SAT 95; BMI 19.1
--- NOTE | 2023-11-24 19:51 | ED.PSYCH ---
HPI - Psych General Chief Complaint: General Medical Stated Complaint: panic attack, 'feels fuzzy' inside Time Seen by Provider: 11/24/23 20:46 Source: patient Mode of arrival: ambulatory Limitations: no limitations History of Present Illness HPI Narrative: 23-year-old male with a past medical history of anxiety presents to the emergency department with complaints a ?fuzzy sensation? in the bottom of his ribs similar to ?when your leg falls asleep?. He states he has had similar symptoms in the past when he has felt anxious. He reports that he uses cannabis for anxiety that he has had no relief of symptoms over the last couple days. He reports roughly 2-3 days ago also used cocaine and is concerned that he may be having a reaction to the cocaine. He also reports and he has concern for STDs and would like to be tested. He denies any shortness of breath, chest pain, abdominal pain, nausea, vomiting, diarrhea, constipation, BRBPR, melena, dizziness, or change in gait range of motion. Pertinent positives and negatives discussed in HPI Related Data Previous Rx's Medication Instructions Recorded acetaminophen 500 mg tablet 1,000 mg (2 x 500 mg) PO QID PRN 03/14/21 (Tylenol Extra Strength) fever or pain #14 tabs azithromycin 250 mg tablet See Rx Instructions PO .COMPLEX #6 03/14/21 tabs ibuprofen 800 mg tablet 800 mg PO Q8H PRN pain #14 tabs 03/14/21 doxycycline hyclate 100 mg tablet 100 mg PO Q12H 10 days #20 tabs 06/17/21 doxycycline hyclate 100 mg tablet 100 mg PO BID 10 days #20 tabs 06/18/21 doxycycline hyclate 100 mg tablet 100 mg PO BID #14 tabs 11/24/23 Allergies Allergy/AdvReac Type Severity Reaction Status Date / Time No Known Allergies Allergy Verified 06/17/21 18:13 Review of Systems Review of Systems: Yes all other systems are reviewed and are negative PMFSH Past Medical History Attestation statement: The following information was validated with the patient. Social History Social History Advance Directives: No Advance Directives Information Provided: No Physical Exam Vital Signs: Vital Signs: Last Vital Signs Temp 98.3 F 11/24/23 19:51 Pulse 69 11/24/23 19:51 Resp 16 11/24/23 19:51 BP 135/67 11/24/23 19:51 Pulse Ox 95 11/24/23 19:51 O2 Del Method Room Air 11/24/23 19:51 BMI result Body Mass Index 19.1 Nursing notes and vital signs reviewed. GENERAL APPEARANCE: A&0 x 4, generally well appearing, no acute distress HENMT: Normal to inspection, atraumatic, face symmetrical. Normal external ears, nose, and oropharynx clear. EYE: PERRLA, EOM intact, structures appear normal NECK: Supple without stiffness or restricted ROM. HEART: Normal rate and regular rhythm, normal S1/S2, no M/R/G LUNGS: LS CTA, moving air well. Able to speak in complete sentences. No crackles, wheezes, or rhonchi auscultated BACK: No CVAT, no obvious deformity EXTREMITIES: Moving all extremities without difficulty. Normal capillary refill. NEUROLOGICAL: Alert and oriented, moving all 4 extremities with equal strength. CN not formally tested but appearing grossly intact. Observed to ambulate with normal gait. Cognition normal SKIN: Warm and dry without any lesions, rash, or visible sores Course Course Course Narrative: This is a rapid medical exam: Additional HPI, ROS, PE not included below will be deferred to primary provider. Patient is a 23-year-old male presenting to the emergency department with complaint of feeling weak and lightheaded. States he feels tingling sensation to his ribs which is causing him to panic. Denies history of anxiety but reports similar episodes in the past. Denies any recent drug or alcohol use and states he hasn't eaten in 2-3 days, has had water. Feeling palpitations in the morning. States the only thing that makes him feel better is splashing cold water on his face and laying on the floor. Also specifically requesting STI testing. Plan: EKG, labs, viral swabs, CTNG Medical Decision Making Medical Decision Making MDM Narrative: Old records reviewed for previous imaging, lab studies, ECGs, and notes. Patient was assessed the emergency department with no acute distress or toxicity noted. Patient's workup essentially unremarkable with no signs of leukocytosis, organ dysfunction, or electrolyte imbalance. Nasal serology negative for Covid, Flu, and RSV. Troponin undetectable. EKG completed, which I have independently interpreted as NSR with sinus arrhythmia and t wave abnormality at 63 bpm with no signs of STEMI or ectopy. When compared to EKG from 01/25/21, the t wave inversion is new in inferior and lateral leads. Heart score 0, indicating low risk for ACS at this time. Pt educated to follow up with cardiology with contact information provided. CT NG pending. Ceftriaxone and doxycycline given here in the emergency department for management of STI and doxycycline sent to patient's preferred pharmacy. Patient educated to follow-up with his primary care provider regarding his increased anxiety. I discussed refraining from illicit substances including cocaine due to risk for ACS. Safe sex practices were discussed as well. Patient is safe for discharge at this time with plan for [id number] Tylenol and/or NSAID such as ibuprofen or naproxen for fever/discomfort with dosing as per packaging. HPI, PE, diagnostics, and plan discussed with patient and family with no unanswered questions at this time. Strict return precautions given to return to the emergency department with new, worsening, or concerning emergent symptoms. Recommended to follow-up with there primary care provider in 24-48 hours for further treatment and management. Differential Diagnosis Differential Diagnoses: The differential diagnosis associated with the presentation includes but not limited to ACS, PE, CVA, costochondritis, pleurisy, STI, anxiety, panic attack, depression, sepsis, malignancy Admission/Observation Consideration of admission/observation: Escalation of care including admission/observation considered deemed unnecessary as heart score 0 and symptoms improved during ED stay Lab Data MDM Lab Attestation statement: I reviewed the patient's lab results. 11/24/23 20:22 11/24/23 20:22 Labs: Lab Results 11/24/23 Range/Units 20:22 WBC 8.3 (4.8-10.8) X10*3/uL RBC 4.65 (4.60-5.80) X10*6/uL Hgb 13.6 L (14.0-18.0) g/dl Hct 40.4 L (42.0-52.0) % MCV 86.9 (80.0-98.0) fL MCH 29.2 (27.0-33.0) pg MCHC 33.7 (31.0-36.0) g/dl RDW 13.3 (11.0-16.0) % Plt Count 285 (160-400) X10*3/uL MPV 9.2 L (9.4-12.4) fL Immature Gran % (Auto) 0.1 (0.0-0.4) % Neut % (Auto) 66.2 (45-73) % Lymph % (Auto) 25.4 (20-40) % [place] % (Auto) 7.7 (2-11) % Eos % (Auto) 0.1 (0-4) % Baso % (Auto) 0.5 (0-2) % Lymph # (Auto) 2.1 (1.2-4.9) X10*3/uL [place] # (Auto) 0.6 (0.1-1.2) X10*3/uL Eos # (Auto) 0.0 (0.0-0.4) X10*3/uL Baso # (Auto) 0.0 (0.0-0.2) X10*3/uL Abs Immat Gran (auto) 0.01 (0.00-0.03) X10*3/uL Absolute Neuts (auto) 5.5 (2.0-8.3) x10*3/uL Absolute Nucleated RBC 0.000 (0.0-0.012) X10*3/uL Nucleated RBC % (auto) 0.0 (0.0-0.2) /100WBC Sodium 140 (135-145) mmol/L Potassium 3.4 (3.3-5.1) mmol/L Chloride 102 (96-108) mmol/L Carbon Dioxide 27 (22-29) mmol/L Anion Gap 14 (12-20) BUN 20 H (9-16) mg/dL Creatinine 1.15 (0.5-1.4) mg/dL Estim Creat Clear Calc 96.1 Estimated GFR > 60 Random Glucose 92 (60-115) mg/dL Calcium 10.0 (8.4-10.2) mg/dL Total Bilirubin 0.7 (0.0-1.0) mg/dL AST 17 (5-37) U/L ALT 13 (0-40) U/L Alkaline Phosphatase 86 (39-117) U/L Troponin I High Sens < 2.7 (<3.5-35.0) ng/L Total Protein 8.2 H (6.5-8.0) g/dL Albumin 4.5 (3.5-5.0) g/dL TSH 0.39 (0.32-4.0) uIU/mL Influenza Type A (PCR) NEGATIVE (Negative) Influenza Type B (PCR) NEGATIVE (Negative) RSV RNA Qual (PCR) NEGATIVE (Negative) SARS-CoV-2 RNA (RT-PCR) NEGATIVE (Negative) Independent Interpretation I performed an independent interpretation of an: EKG Interpretation: see MDM Discharge Plan Discharge Clinical Impression: Anxiety, Chest pain, Sexually transmitted disease exposure Patient Disposition: Home, Self-Care Instructions: Chest Pain (ED), Safe Sex Practices (ED), Postexposure Prophylaxis (ED), Anxiety (ED) Prescriptions: New doxycycline hyclate 100 mg tablet 100 mg PO BID Qty: 14 0RF No Action azithromycin 250 mg tablet See Rx Instructions .ROUTE .COMPLEX Qty: 6 0RF Rx Instructions: take 500 mg today (day 1), then 250 mg for 4 days (days 2-5) ibuprofen 800 mg tablet 800 mg PO Q8H PRN (Reason: pain) Qty: 14 0RF acetaminophen [Tylenol Extra Strength] 500 mg tablet 1,000 mg PO QID PRN (Reason: fever or pain) Qty: 14 0RF doxycycline hyclate 100 mg tablet 100 mg PO Q12H 10 Days Qty: 20 0RF doxycycline hyclate 100 mg tablet 100 mg PO BID 10 Days Qty: 20 0RF Referrals: [facility] [place] Services [Provider Group] [facility] [place] Family Medicine [Provider Group] [facility] [place] Primary [facility] [Provider Group] [facility] [place] Primary Care[facility] [Provider Group] Stand Alone Forms: Work/School Release Print Language: Urdu
--- NOTE | 2023-11-24 19:54 | ECG_ITS ---
Test Reason : PALPITATIONS Blood Pressure : / mmHG Vent. Rate : 069 BPM Atrial Rate : 069 BPM P-R Int : 134 ms QRS Dur : 102 ms QT Int : 372 ms P-R-T Axes : 060 079 022 degrees QTc Int : 398 ms Normal sinus rhythm with sinus arrhythmia T wave abnormality, consider lateral ischemia Abnormal ECG When compared with ECG of 25-JAN-2021 11:58, T wave inversion now evident in Lateral leads Referred By: Mavis Ojeda Electronically Signed By:YVONNE HERNANDEZ
[2023-11-24 20:32] LABS: MANUAL DIFF FLAG NO
[2023-11-24 20:34] LABS: Basophils Percent Auto 0.5 % (0-2); Eosinophils Percent Auto 0.1 % (0-4); Hematocrit 40.4 % (42.0-52.0); Hemoglobin 13.6 g/dl (14.0-18.0); Imm Gran Abs Auto 0.01 X10*3/uL (0.00-0.03); Imm Gran Pct Auto 0.1 % (0.0-0.4); Lymphocytes Absolute Auto 2.1 X10*3/uL (1.2-4.9); Lymphocytes Percent Auto 25.4 % (20-40); Mean Corpuscular HGB Conc 33.7 g/dl (31.0-36.0); Mean Corpuscular Hemoglobin 29.2 pg (27.0-33.0); Mean Corpuscular Volume 86.9 fL (80.0-98.0); Mean Platelet Volume 9.2 fL (9.4-12.4); Monocytes Absolute Auto 0.6 X10*3/uL (0.1-1.2); Monocytes Percent Auto 7.7 % (2-11); Neutrophils Absolute Auto 5.5 x10*3/uL (2.0-8.3); Neutrophils Percent Auto 66.2 % (45-73); Platelet Count 285 X10*3/uL (160-400); Red Blood Count 4.65 X10*6/uL (4.60-5.80); Red Cell Distribution Width 13.3 % (11.0-16.0); White Blood Count 8.3 X10*3/uL (4.8-10.8)
[2023-11-24 20:54] LABS: Alanine Aminotransferase 13 U/L (0-40); Albumin Level 4.5 g/dL (3.5-5.0); Alkaline Phosphatase 86 U/L (39-117); Anion Gap 14 (12-20); Aspartate Amino Transferase 17 U/L (5-37); Bilirubin Total 0.7 mg/dL (0.0-1.0); Blood Urea Nitrogen 20 mg/dL (9-16); Carbon Dioxide 27 mmol/L (22-29); Chloride 102 mmol/L (96-108); Creatinine Clr Calc Pharmacy 96.1; Estimated Glomerular Filt Rate > 60; Glucose Random 92 mg/dL (60-115); Potassium 3.4 mmol/L (3.3-5.1); Sodium 140 mmol/L (135-145); Total Protein 8.2 g/dL (6.5-8.0)
[2023-11-24 21:09] LABS: TSH reflex Free T4 0.39 uIU/mL (0.32-4.0)
[2023-11-24 21:10] LABS: Influenza A PCR NEGATIVE (Negative); Influenza B PCR NEGATIVE (Negative); Resp Syncy Virus RNA Qual PCR NEGATIVE (Negative); SARS COV2 PCR INHOUSE NEGATIVE (Negative)
[2023-11-24 21:28] LABS: Troponin-I High Sensitivity < 2.7 ng/L (<3.5-35.0)
[2023-11-24 22:08] VITALS: BP 154/69; PULSE 58; O2SAT 98
[2023-11-24] MEDS: Doxycycline Monohydrate 100 MG CAPSULE PO (22:18)
[2023-11-24] MEDS: cefTRIAXone sodium 500 MG, Lidocaine HCl 1 % MPF 1 ML IM (22:18)
[2023-11-25 05:50] LABS: CT PCR DETECTED (Not Detect.); NG PCR DETECTED (Not Detect.)
== END 2023-11-24 22:30 | disposition home or self-care (01) ==
PROVIDERS: Nurse Practitioner Family; Registered Nurse Emergency; Emergency Provider Emergency Medicine Emergency Medical Services
DX: F41.9 Anxiety disorder, unspecified (principal); R07.9 Chest pain, unspecified; A54.9 Gonococcal infection, unspecified; A74.9 Chlamydial infection, unspecified; Z11.52 Encounter for screening for COVID-19; Z20.828 Contact with and (suspected) exposure to other viral communicable diseases
CPT/HCPCS: 0241U; 0353U; 80053; 84443; 84484; 85025; 93005; 96372; 99284; J0696

== ENCOUNTER → 2023-11-24 19:54 | Outpatient (BNV) | payer SELFPAY | PROVIDERS: Emergency Provider Emergency Medicine Emergency Medical Services; Visit Provider Internal Medicine | DX: R94.31 Abnormal electrocardiogram [ECG] [EKG] (principal) | CPT/HCPCS: 93010 ==

== ENCOUNTER 2023-12-10 00:10 | Emergency (ER) | payer OTHER, SELFPAY ==
--- NOTE | ~2023-12-10 | XR_ITS ---
EXAMINATION: XR CHEST CLINICAL INFORMATION: Chest pain COMPARISON: 06/17/2021 TECHNIQUE: Frontal view of the chest was obtained. FINDINGS: Lungs are well-inflated and clear. Trachea is midline in position. No interstitial disease, consolidation or mass. No pleural effusion or pneumothorax. Cardiac silhouette and pulmonary vessels are normal in size. The mediastinum and shira have normal contour. The visualized bones and upper abdomen are unremarkable. XR/XR chest 1V IMPRESSION: Lungs have a normal appearance. No acute cardiopulmonary abnormality.
[2023-12-10 00:17] VITALS: BP 132/84; PULSE 72; O2SAT 100
[2023-12-10 00:34] VITALS: BP 123/70; PULSE 77; RESP 16; TEMP 36.4; O2SAT 97; BMI 19.2
[2023-12-10 05:15] VITALS: BP 133/81; PULSE 62; RESP 18; O2SAT 100
--- NOTE | 2023-12-10 06:20 | PC.NURSE ---
pt not in waiting room at this time 1353
[2023-12-10 06:40] VITALS: BP 124/86; PULSE 63; RESP 16; TEMP 36.7; O2SAT 100
--- NOTE | 2023-12-10 07:43 | ECG_ITS ---
Test Reason : CP Blood Pressure : / mmHG Vent. Rate : 062 BPM Atrial Rate : 062 BPM P-R Int : 140 ms QRS Dur : 106 ms QT Int : 376 ms P-R-T Axes : 068 083 058 degrees QTc Int : 381 ms Normal sinus rhythm Nonspecific ST abnormality Abnormal ECG When compared with ECG of 24-NOV-2023 20:26, T wave inversion no longer evident in Inferior leads T wave inversion no longer evident in Lateral leads Referred By: Marisela Rios Electronically Signed By:ERIC BARRAGAN MD
--- NOTE | 2023-12-10 07:44 | ED.ANXIETY ---
HPI - Anxiety General Chief Complaint: Anxiety Stated Complaint: SOB, BACK PAIN Time Seen by Provider: 12/10/23 06:58 History of Present Illness HPI narrative: Patient is a 23-year-old male presents today with having chest pain. Patient claims his pain is on the left side. He has a history of anxiety. Patient denies any fever chills. The pain has been ongoing for about 2 weeks. Patient claims he use some cocaine once. Positive marijuana use. There has no abdominal pain there is no leg swelling. Patient is from home. He has no urinary symptoms. No fever no chills no penile discharge. Related Data Previous Rx's Medication Instructions Recorded acetaminophen 500 mg tablet 1,000 mg (2 x 500 mg) PO QID PRN 03/14/21 (Tylenol Extra Strength) fever or pain #14 tabs azithromycin 250 mg tablet See Rx Instructions PO .COMPLEX #6 03/14/21 tabs ibuprofen 800 mg tablet 800 mg PO Q8H PRN pain #14 tabs 03/14/21 doxycycline hyclate 100 mg tablet 100 mg PO Q12H 10 days #20 tabs 06/17/21 doxycycline hyclate 100 mg tablet 100 mg PO BID 10 days #20 tabs 06/18/21 doxycycline hyclate 100 mg tablet 100 mg PO BID #14 tabs 11/24/23 doxycycline hyclate 100 mg capsule 100 mg PO BID cough 10 days #20 12/10/23 caps Allergies Allergy/AdvReac Type Severity Reaction Status Date / Time No Known Allergies Allergy Verified 06/17/21 18:13 Review of Systems Review of Systems: Positive or shortness breath no nausea no vomiting PMFSH Past Medical History Attestation statement: The following information was validated with the patient. Social History Social History Alcohol intake: never Advance Directives: No Advance Directives Information Provided: No Physical Exam Vital Signs: Vital Signs: Last Vital Signs Temp 98.0 F 12/10/23 06:40 Pulse 61 12/10/23 08:28 Resp 16 12/10/23 08:28 BP 140/83 H 12/10/23 08:28 Pulse Ox 100 12/10/23 08:28 O2 Del Method Room Air 12/10/23 08:28 BMI result Body Mass Index 19.2 Appearance: Alert. Oriented X3. No acute distress. Eyes: Pupils equal, round and reactive to light. ENT: Pharynx normal. Neck: Normal inspection. Neck supple. No lymph nodes noted. No crepitus CVS: Normal heart rate and rhythm. Pulses normal. Normal S1 and S2 Respiratory: No respiratory distress. Breath sounds normal. No Wheezing. No rales Abdomen: Soft and nontender. No rigidity. No distention. good BS x4 Skin: Skin warm and dry. Normal skin color. Normal skin turgor. Extremities: No lower extremity edema. Neurovascular intact to all extremities. No Lacerations. No Rash Neuro: Oriented X 3. No motor deficit. No sensory deficit. Moving all extermities. No slurred speech Medications Administered Discontinued Medications Generic Name Dose Route Start Last Admin Trade Name Savq PRN Reason Stop Dose Admin Ceftriaxone Sodium 500 mg/ 0 mg 12/10/23 07:47 12/10/23 08:14 Lidocaine HCl 1 ml IM 12/10/23 07:48 1 kit ONCE ONE Administration Doxycycline Monohydrate 100 mg 12/10/23 07:47 12/10/23 08:14 Doxycycline Monohydrate 100 Mg Capsule PO 12/10/23 07:48 100 mg ONCE ONE Administration Medical Decision Making Medical Decision Making MDM Narrative: Patient's chest pain is atypical but given history of using cocaine will get a set of cardiac enzymes , EKG ordered. a chest x-ray was also ordered to rule out the possibility pneumonia pneumothorax. Patient's old lab was reviewed. Previously tested positive for gonorrhea and chlamydia. He states he was treated with a shot of antibiotics at that time but did not follow-up. He did not have any symptom currently.. Will give patient Rocephin 500 mg IM in addition to doxycycline for 10 days. First dose was given in the emergency department. Patient's pain atypical for ACS he is only 23 years old. If his enzymes and EKG are negative his heart score is less than 3. His history is not consistent with PE. Patient's chest x-ray showed no focal infiltrate. Patient troponin is negative. EKG showed a sinus pattern heart rate is 60 KS QRS QTC within normal limits there is significant signs of LVH. There is signs of early report which was present in the previous EKG. Given patient's age atypical history unlikely secondary to ACS. Will have patient follow-up with his primary physician on an outpatient basis. Because patient did not take his doxycycline will give a prescription for doxycycline for 10 days. Currently in stable condition. Will discharge home. Differential Diagnosis Differential Diagnoses: The differential diagnosis associated with the presentation includes Pneumonia, pneumothorax, ACS, STD Admission/Observation Consideration of admission/observation: Escalation of care including admission/observation considered Lab Data MDM Lab Attestation statement: I reviewed the patient's lab results. 12/10/23 08:37 12/10/23 08:37 Labs: Lab Results 12/10/23 Range/Units 08:37 WBC 8.0 (4.8-10.8) X10*3/uL RBC 4.82 (4.60-5.80) X10*6/uL Hgb 14.1 (14.0-18.0) g/dl Hct 42.2 (42.0-52.0) % MCV 87.6 (80.0-98.0) fL MCH 29.3 (27.0-33.0) pg MCHC 33.4 (31.0-36.0) g/dl RDW 13.2 (11.0-16.0) % Plt Count 263 (160-400) X10*3/uL MPV 8.9 L (9.4-12.4) fL Immature Gran % (Auto) 0.2 (0.0-0.4) % Neut % (Auto) 51.5 (45-73) % Lymph % (Auto) 37.2 (20-40) % [place] % (Auto) 9.6 (2-11) % Eos % (Auto) 1.0 (0-4) % Baso % (Auto) 0.5 (0-2) % Lymph # (Auto) 3.0 (1.2-4.9) X10*3/uL [place] # (Auto) 0.8 (0.1-1.2) X10*3/uL Eos # (Auto) 0.1 (0.0-0.4) X10*3/uL Baso # (Auto) 0.0 (0.0-0.2) X10*3/uL Abs Immat Gran (auto) 0.02 (0.00-0.03) X10*3/uL Absolute Neuts (auto) 4.1 (2.0-8.3) x10*3/uL Absolute Nucleated RBC 0.000 (0.0-0.012) X10*3/uL Nucleated RBC % (auto) 0.0 (0.0-0.2) /100WBC Sodium 142 (135-145) mmol/L Potassium 3.5 (3.3-5.1) mmol/L Chloride 106 (96-108) mmol/L Carbon Dioxide 29 (22-29) mmol/L Anion Gap 11 L (12-20) BUN 17 H (9-16) mg/dL Creatinine 1.23 (0.5-1.4) mg/dL Estim Creat Clear Calc 90.2 Estimated GFR > 60 Random Glucose 84 (60-115) mg/dL Calcium 10.1 (8.4-10.2) mg/dL Troponin I High Sens < 2.7 (<3.5-35.0) ng/L Independent Interpretation I performed an independent interpretation of an: EKG (Sinus heart rate is 60 KS QRS QTC within normal limits there is ST segment elevation consistent with LVH noted. Previous EKG reviewed) and Plain X-Ray (Chest x-ray negative) Radiology Impression Discussion of test interpretation with radiology: I have reviewed the radiologist's reading. Chronic Conditions History of cocaine use, history of marijuana use Social Determinants Patient?s care significantly limited by Social Determinants of Health including: Alcoholism and drug addiction in family Discharge Plan Discharge Clinical Impression: Chest pain, Encounter for assessment of STD exposure Patient Disposition: Home, Self-Care Instructions: Chest Pain (DC), Sexually Transmitted Diseases (ED) Prescriptions: New doxycycline hyclate 100 mg capsule 100 mg PO BID 10 Days Qty: 20 0RF No Action azithromycin 250 mg tablet See Rx Instructions .ROUTE .COMPLEX Qty: 6 0RF Rx Instructions: take 500 mg today (day 1), then 250 mg for 4 days (days 2-5) ibuprofen 800 mg tablet 800 mg PO Q8H PRN (Reason: pain) Qty: 14 0RF acetaminophen [Tylenol Extra Strength] 500 mg tablet 1,000 mg PO QID PRN (Reason: fever or pain) Qty: 14 0RF doxycycline hyclate 100 mg tablet 100 mg PO Q12H 10 Days Qty: 20 0RF doxycycline hyclate 100 mg tablet 100 mg PO BID 10 Days Qty: 20 0RF doxycycline hyclate 100 mg tablet 100 mg PO BID Qty: 14 0RF Referrals: [facility] [Physician] - 12/13/23
[2023-12-10] MEDS: cefTRIAXone sodium 500 MG, Lidocaine HCl 1 % MPF 1 ML IM (08:14)
[2023-12-10] MEDS: Doxycycline Monohydrate 100 MG CAPSULE PO (08:14)
[2023-12-10 08:28] VITALS: BP 140/83; PULSE 61; RESP 16; O2SAT 100
[2023-12-10 08:41] LABS: MANUAL DIFF FLAG NO
[2023-12-10 08:42] LABS: Basophils Percent Auto 0.5 % (0-2); Eosinophils Absolute Auto 0.1 X10*3/uL (0.0-0.4); Hematocrit 42.2 % (42.0-52.0); Hemoglobin 14.1 g/dl (14.0-18.0); Imm Gran Abs Auto 0.02 X10*3/uL (0.00-0.03); Imm Gran Pct Auto 0.2 % (0.0-0.4); Lymphocytes Percent Auto 37.2 % (20-40); Mean Corpuscular HGB Conc 33.4 g/dl (31.0-36.0); Mean Corpuscular Hemoglobin 29.3 pg (27.0-33.0); Mean Corpuscular Volume 87.6 fL (80.0-98.0); Mean Platelet Volume 8.9 fL (9.4-12.4); Monocytes Absolute Auto 0.8 X10*3/uL (0.1-1.2); Monocytes Percent Auto 9.6 % (2-11); Neutrophils Absolute Auto 4.1 x10*3/uL (2.0-8.3); Neutrophils Percent Auto 51.5 % (45-73); Platelet Count 263 X10*3/uL (160-400); Red Blood Count 4.82 X10*6/uL (4.60-5.80); Red Cell Distribution Width 13.2 % (11.0-16.0)
[2023-12-10 08:53] LABS: Anion Gap 11 (12-20); Blood Urea Nitrogen 17 mg/dL (9-16); Calcium 10.1 mg/dL (8.4-10.2); Carbon Dioxide 29 mmol/L (22-29); Chloride 106 mmol/L (96-108); Creatinine Clr Calc Pharmacy 90.2; Estimated Glomerular Filt Rate > 60; Glucose Random 84 mg/dL (60-115); Potassium 3.5 mmol/L (3.3-5.1); Sodium 142 mmol/L (135-145)
[2023-12-10 09:05] LABS: Troponin-I High Sensitivity < 2.7 ng/L (<3.5-35.0)
[2023-12-10 09:41] VITALS: BP 140/83; PULSE 58; RESP 18; TEMP 36.7; O2SAT 98
== END 2023-12-10 09:55 | disposition home or self-care (01) ==
PROVIDERS: Emergency Provider Emergency Medicine Emergency Medical Services
DX: R07.9 Chest pain, unspecified (principal); Z20.2 Contact with and (suspected) exposure to infections with a predominantly sexual mode of transmission
CPT/HCPCS: 36415; 71045; 80048; 84484; 85025; 93005; 96372; 99284; 99285; J0696

== ENCOUNTER → 2023-12-10 07:43 | Outpatient (BNV) | payer SELFPAY | PROVIDERS: Emergency Provider Emergency Medicine Emergency Medical Services; Visit Provider Internal Medicine Cardiovascular Disease | DX: R94.31 Abnormal electrocardiogram [ECG] [EKG] (principal) | CPT/HCPCS: 93010 ==

== ENCOUNTER 2023-12-16 01:16 | Emergency (ER) | payer OTHER, SELFPAY ==
[2023-12-16 01:26] VITALS: BMI 19.3
--- NOTE | 2023-12-16 01:27 | ED.GENADULT ---
HPI - General Adult General Chief complaint: General Medical Stated complaint: gen med Time Seen by Provider: 12/16/23 01:36 Source: patient Mode of arrival: ambulatory Limitations: no limitations History of Present Illness HPI narrative: 23-year-old male presents with anxiety due to recent diagnosis of gonorrhea and chlamydia. Patient reports he got an injection here in the hospital and was sent home with doxycycline. However, he states he is nervous to take it because sometimes it gives him GI upset. He tells me he is feeling very anxious and he feels numb because of this anxiety he tells me he will beat this disease . Tells me he is coming in for encouragement for reassurance that he will be fine if he completes antibiotics. Denies fevers, chills, penile discharge, chest pain, shortness of breath, nausea, vomiting, abdominal pain, flank pain, headache, vision changes, dizziness and weakness. Related Data Previous Rx's Medication Instructions Recorded acetaminophen 500 mg tablet 1,000 mg (2 x 500 mg) PO QID PRN 03/14/21 (Tylenol Extra Strength) fever or pain #14 tabs azithromycin 250 mg tablet See Rx Instructions PO .COMPLEX #6 03/14/21 tabs ibuprofen 800 mg tablet 800 mg PO Q8H PRN pain #14 tabs 03/14/21 doxycycline hyclate 100 mg tablet 100 mg PO Q12H 10 days #20 tabs 06/17/21 doxycycline hyclate 100 mg tablet 100 mg PO BID 10 days #20 tabs 06/18/21 doxycycline hyclate 100 mg tablet 100 mg PO BID #14 tabs 11/24/23 doxycycline hyclate 100 mg capsule 100 mg PO BID cough 10 days #20 12/10/23 caps Allergies Allergy/AdvReac Type Severity Reaction Status Date / Time No Known Allergies Allergy Verified 12/16/23 01:25 Review of Systems Review of Systems: Constitutional : No Weight loss, No Fever, No Chills, No Fatigue, No Malaise ENT/Mouth : No sore throat, No Rhinorrhea Eyes: No Eye Pain, No Swelling, No Redness Cardiovascular : No Chest Pain, No SOB, No Dyspnea on Exertion, No Orthopnea, No Edema, No Palpitations Respiratory : No Cough, No Sputum, No Wheezing Gastrointestinal : No Nausea, No Vomiting, No Diarrhea, No Constipation, No abdominal Pain, No Hematochezia, No Melena Genitourinary : No Dysuria, No Urinary Frequency, No Hematuria, Musculoskeletal : No joint pain, No Myalgias, No Joint Swelling Skin : No Skin Lesions, No rash Neuro : No Weakness, No Numbness, No Dizziness, No Headache Psych : No Anxiety/Panic, No Depression All other systems reviewed and are negative Yes all other systems are reviewed and are negative [facility] Past Medical History Attestation statement: The following information was validated with the patient. Source: old records reviewed and nursing notes reviewed Social History Social History Alcohol intake: never Smoked in Last 30 Days: No Use of substances other than those prescribed or required for medical reasons: Yes Substance Use Type: Marijuana Advance Directives: No Advance Directives Information Provided: Yes Physical Exam ED Vital Signs: Vital Signs - 24 hr 12/16/23 01:26 12/16/23 03:43 Temperature 97.3 F Pulse Rate 70 Respiratory Rate 16 Blood Pressure 137/65 Pulse Oximetry 100 Oxygen Delivery Method Room Air Room Air BMI result Body Mass Index 19.3 vss Appearance: Alert.? Oriented X3.? No acute distress.? Head: Normocephalic, atraumatic, no step-offs or deformities Eyes: Pupils equal, round and reactive to light.? ENT: Pharynx normal.? Neck: Normal inspection.? Neck supple.? CVS: Normal heart rate and rhythm.? Pulses normal.? Respiratory: No respiratory distress.? Breath sounds normal.? Abdomen: Soft and nontender.? Skin: Skin warm and dry.? Normal skin color.? Normal skin turgor.? Extremities: No lower extremity edema.? No calf ttp. 5/5 strength to bilateral upper and lower extremities Neuro: Oriented X 3.? No motor deficit.? No sensory deficit. CN 2-12 intact Course Reevaluation(s) Reevaluation #1: Upon discharge patient reports chest discomfort trop and EKG pending sign out to Dr. Rios Time: 01:34 Medications Administered Discontinued Medications Generic Name Dose Route Start Last Admin Trade Name Freq PRN Reason Stop Dose Admin Lorazepam 0.5 mg 12/16/23 01:35 12/16/23 02:03 Lorazepam 0.5 Mg Tablet PO 12/16/23 01:36 0.5 mg ONCE ONE Administration Medical Decision Making Medical Decision Making [facility] Narrative: 23-year-old male presents with anxiety related to his recent diagnosis of gonorrhea and chlamydia, he is afraid to take his medications because sometimes they cause him GI upset. He tells me he is just here for reassurance Physical exam benign patient appears anxious History and physical exam consistent with anxious male likely secondary to medical condition or diagnosis. Unlikely metabolic derangements. No chest pain or shortness of breath unlikely PE or ACS. Reports anxiety however no depression. Denies hallucinations unlikely bipolar schizophrenia. Patient denies suicidal and homicidal ideation. Plan at this time patient to be discharged home likely diagnosis anxiety. Advised him to take all his meds as prescribed. I also advised him to follow-up with PCP and or a health clinic to do full panel STD testing. I did offer for him to speak to the care team nurse Shen at bedside as witnessed patient does not want to speak to them he states it is just this medical condition making him anxious. He reports he has a good support system at home mother and father. No indication for Section 12. Took of patient's case of the change of shift. Patient's EKG showed a sinus rhythm heart rate was 80 MA QRS QTC normal. There is significant LVH nonspecific ST segments noted. However this EKGs unchanged from previous. Patient's troponin is negative. History not consistent with ACS. Differential Diagnosis Differential Diagnoses: The differential diagnosis associated with the presentation includes History and physical exam consistent with anxious male likely secondary to medical condition or diagnosis. Unlikely metabolic derangements. No chest pain or shortness of breath unlikely PE or ACS. Reports anxiety however no depression. Denies hallucinations unlikely bipolar schizophrenia. Patient denies suicidal and homicidal ideation. Admission/Observation Consideration of admission/observation: Escalation of care including admission/observation considered Unlikely Lab Data [facility] Lab Attestation statement: I reviewed the patient's lab results. Labs: Lab Results 12/16/23 Range/Units 01:43 Troponin I High Sens < 2.7 (<3.5-35.0) ng/L Independent Interpretation I performed an independent interpretation of an: EKG (Sinus heart rate is 80 MA QRS QTC normal there is nonspecific ST segment changes but not changed from previous) External Record Review External record reviewed: Inpatient record, Office record, Outpatient record, Prior outpatient labs, Prior outpatient radiology, Primary care record and Outside ED record Chronic Conditions Patient?s care impacted by: Other (STD ( gonorrhea/ chlamydia) ) Critical Care Time Critical Care Time Critical Care Time: No Discharge Plan Discharge Clinical Impression: STD (male), Anxiety, Anxiety about health Patient Disposition: Home, Self-Care Instructions: Anxiety (ED) Additional Instructions: Take your medications as prescribed. If you were prescribed antibiotics today, it is important that you take your medication to their entirety, do not skip any doses, do not finish them early. Follow-up with your primary care provider this week. Return to the emergency department with new or worsening symptoms. Such as fevers, chills, chest pain, shortness of breath, nausea, vomiting, dizziness, headache, vision changes, lethargy In case of emergency call 911 Prescriptions: No Action azithromycin 250 mg tablet See Rx Instructions .ROUTE .COMPLEX Qty: 6 0RF Rx Instructions: take 500 mg today (day 1), then 250 mg for 4 days (days 2-5) ibuprofen 800 mg tablet 800 mg PO Q8H PRN (Reason: pain) Qty: 14 0RF acetaminophen [Tylenol Extra Strength] 500 mg tablet 1,000 mg PO QID PRN (Reason: fever or pain) Qty: 14 0RF doxycycline hyclate 100 mg tablet 100 mg PO Q12H 10 Days Qty: 20 0RF doxycycline hyclate 100 mg tablet 100 mg PO BID 10 Days Qty: 20 0RF doxycycline hyclate 100 mg tablet 100 mg PO BID Qty: 14 0RF doxycycline hyclate 100 mg capsule 100 mg PO BID 10 Days Qty: 20 0RF Referrals: Physician,Unknown J [Primary Care Provider] - 2 days
--- NOTE | 2023-12-16 01:34 | ECG_ITS ---
Test Reason : CHEST PAIN Blood Pressure : / mmHG Vent. Rate : 078 BPM Atrial Rate : 078 BPM P-R Int : 126 ms QRS Dur : 100 ms QT Int : 360 ms P-R-T Axes : 079 085 059 degrees QTc Int : 410 ms Normal sinus rhythm with sinus arrhythmia Nonspecific ST abnormality Abnormal ECG When compared with ECG of 10-DEC-2023 08:20, No significant change was found Referred By: Sherie Finn Electronically Signed By:YVONNE HERNANDEZ
[2023-12-16] MEDS: LORazepam 0.5 MG TABLET PO (02:03)
[2023-12-16 02:14] LABS: Troponin-I High Sensitivity < 2.7 ng/L (<3.5-35.0)
--- NOTE | 2023-12-16 02:16 | PC.NURSE ---
pt medicated per mar, warm blanket given.
[2023-12-16 03:43] VITALS: BP 137/65; PULSE 70; RESP 16; TEMP 36.3; O2SAT 100
--- NOTE | 2023-12-16 03:46 | PC.NURSE ---
pt is resting at this time.
[2023-12-16 04:06] VITALS: BP 165/55; PULSE 55; RESP 20; TEMP 37; O2SAT 98
== END 2023-12-16 04:14 | disposition home or self-care (01) ==
PROVIDERS: Physician Assistant; Emergency Provider Emergency Medicine Emergency Medical Services
DX: A64 Unspecified sexually transmitted disease (principal); F41.1 Generalized anxiety disorder; R07.89 Other chest pain; F43.0 Acute stress reaction; Z79.899 Other long term (current) drug therapy
CPT/HCPCS: 36415; 84484; 93005; 99283; 99284

== ENCOUNTER → 2023-12-16 01:34 | Outpatient (BNV) | payer SELFPAY | PROVIDERS: Emergency Provider Emergency Medicine Emergency Medical Services; Visit Provider Internal Medicine | DX: I49.9 Cardiac arrhythmia, unspecified (principal) | CPT/HCPCS: 93010 ==

== ENCOUNTER 2023-12-18 19:30 | Emergency (ER) | payer OTHER, SELFPAY ==
[2023-12-18 19:40] VITALS: BP 132/78; PULSE 75
[2023-12-18 20:02] VITALS: BP 125/74; PULSE 80; RESP 18; TEMP 37.1; O2SAT 93; BMI 18.3
--- NOTE | 2023-12-18 20:07 | ECG_ITS ---
Test Reason : N/V Blood Pressure : / mmHG Vent. Rate : 068 BPM Atrial Rate : 068 BPM P-R Int : 126 ms QRS Dur : 104 ms QT Int : 372 ms P-R-T Axes : 065 086 049 degrees QTc Int : 395 ms Normal sinus rhythm Nonspecific ST abnormality Borderline ECG When compared with ECG of 16-DEC-2023 03:30, No significant change was found Referred By: Generic ED Physician Electronically Signed By:YVONNE HERNANDEZ
--- NOTE | 2023-12-18 20:13 | PC.NURSE ---
pt came in via ems for n/v only once in triage pt began complaining of chest pain as well. ekg ordered at this point- pt also c/o anxiety at this time
--- NOTE | 2023-12-18 20:17 | MHC.EDTECH ---
called patient @ 2009 to get an EKG,patient is in the bathroom.
--- NOTE | 2023-12-18 20:21 | MHC.EDTECH ---
Patient brought into triage area,EKG taken per order and signed by provider,labs drawn and sent to lab.
[2023-12-18 20:31] LABS: MANUAL DIFF FLAG NO
[2023-12-18 20:33] LABS: Basophils Percent Auto 0.6 % (0-2); Eosinophils Percent Auto 0.2 % (0-4); Hematocrit 40.6 % (42.0-52.0); Hemoglobin 13.8 g/dl (14.0-18.0); Lymphocytes Absolute Auto 1.9 X10*3/uL (1.2-4.9); Lymphocytes Percent Auto 36.1 % (20-40); Mean Corpuscular Volume 85.3 fL (80.0-98.0); Mean Platelet Volume 8.7 fL (9.4-12.4); Monocytes Absolute Auto 0.5 X10*3/uL (0.1-1.2); Monocytes Percent Auto 9.3 % (2-11); Neutrophils Absolute Auto 2.9 x10*3/uL (2.0-8.3); Neutrophils Percent Auto 53.8 % (45-73); Platelet Count 265 X10*3/uL (160-400); Red Blood Count 4.76 X10*6/uL (4.60-5.80); Red Cell Distribution Width 12.7 % (11.0-16.0); White Blood Count 5.3 X10*3/uL (4.8-10.8)
[2023-12-18 20:44] LABS: Anion Gap 15 (12-20); Blood Urea Nitrogen 13 mg/dL (9-16); Carbon Dioxide 26 mmol/L (22-29); Chloride 104 mmol/L (96-108); Creatinine Clr Calc Pharmacy 104.1; Estimated Glomerular Filt Rate > 60; Glucose Random 93 mg/dL (60-115); Potassium 3.3 mmol/L (3.3-5.1); Sodium 142 mmol/L (135-145)
[2023-12-18 20:53] LABS: Troponin-I High Sensitivity < 2.7 ng/L (<3.5-35.0)
--- NOTE | 2023-12-18 22:04 | PC.NURSE ---
Per pt, was prescribed abx on 12/09 for STI, has skipped multiple days of abx, and endorses panic attacks when he took them took close together one day. Also states had nausea d/t not eating per prescription recommendations.
--- NOTE | 2023-12-18 23:01 | ED.CHESTPAIN ---
HPI - Chest Pain General Chief Complaint: Chest Pain Stated Complaint: N/V Time Seen by Provider: 12/18/23 23:01 History of Present Illness HPI narrative: The patient is a 23-year-old male who has been experiencing a lot of anxiety that seems to have been exacerbated by a recent diagnosis of gonorrhea and chlamydia. On November 24 he tested positive for GC and chlamydia and received IM ceftriaxone and was given a prescription for doxycycline. He returned on December 09 and he received a 2nd IM injection of ceftriaxone and another prescription for 10 days of doxycycline. He has a apparently been finding taking the doxycycline difficult because he feels very anxious about it. He is very vague about how much doxycycline he has taken and it is not clear if he has successfully taken either course of 10 days of doxycycline. He says that he was home by himself this evening worried about taking the doxycycline. He says he called several family members and friends but was unable to reach anyone to talk to about his anxiety so he ultimately called 911 and was brought here. He believes he had a panic attack. The patient says that he has currently not working. He is worked doing [employer] and he is worked at [employer] but he has not currently employed. He has also not currently a student. 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 He is in touch with his family on a regular basis he says. He denies any thoughts of suicidality or self-harm. He denies any homicidality. Related Data Previous Rx's Medication Instructions Recorded acetaminophen 500 mg tablet 1,000 mg (2 x 500 mg) PO QID PRN 03/14/21 (Tylenol Extra Strength) fever or pain #14 tabs azithromycin 250 mg tablet See Rx Instructions PO .COMPLEX #6 03/14/21 tabs ibuprofen 800 mg tablet 800 mg PO Q8H PRN pain #14 tabs 03/14/21 doxycycline hyclate 100 mg tablet 100 mg PO Q12H 10 days #20 tabs 06/17/21 doxycycline hyclate 100 mg tablet 100 mg PO BID 10 days #20 tabs 06/18/21 doxycycline hyclate 100 mg tablet 100 mg PO BID #14 tabs 11/24/23 doxycycline hyclate 100 mg capsule 100 mg PO BID cough 10 days #20 12/10/23 caps doxycycline monohydrate 100 mg 100 mg PO BID #20 caps 12/19/23 capsule Allergies Allergy/AdvReac Type Severity Reaction Status Date / Time No Known Allergies Allergy Verified 12/18/23 20:02 Review of Systems Review of Systems: Yes all other systems are reviewed and are negative [facility] Social History Social History Alcohol intake: never Smoked in Last 30 Days: No Use of substances other than those prescribed or required for medical reasons: No Substance Use Type: Marijuana Advance Directives: No Advance Directives Information Provided: No Physical Exam Vital Signs: Vital Signs: Last Vital Signs Temp 97.7 F 12/19/23 07:51 Pulse 76 12/19/23 07:51 Resp 20 12/19/23 07:51 BP 116/64 12/19/23 07:51 Pulse Ox 99 12/19/23 07:51 O2 Del Method Room Air 12/19/23 07:51 BMI result Body Mass Index 18.3 Const: Other: The patient is a slim and healthy-looking 23-year-old who was sleeping. He awoke with verbal stimulation to a normal mental status. He had a very vague affect and demeanor but did not seem in distress in any way. HEENT: Other: Face is symmetrical. Mucous membranes moist. Eyes: Other: Pupils are round equal, conjunctivae are clear, extraocular movements intact Neck: Other: No swelling or adenopathy Resp: Effort & Inspection: normal respiratory effort Auscultation: clear to auscultation bilaterally Cardio: Rate: regular rate Rhythm: regular rhythm Heart sounds: S1 normal heart sound present and S2 normal heart sound present GI: Other: Abdomen is soft and nontender Skin: Other: Skin is dry and unremarkable Neuro: Other: The patient is awake and alert and oriented. He has a somewhat unusual demeanor but otherwise has intact cranial nerves, normal strength in all extremities, normal coordination, neurologically intact. Extrem: Other: No peripheral edema Psych: Other: The patient is a well-groomed 23-year-old. He looks fit. He has a vague and unusual demeanor and would rarely answer questions directly. He has not suicidal or homicidal. No thoughts of self-harm. No clear thought disorder. Medications Administered Discontinued Medications Generic Name Dose Route Start Last Admin Trade Name Letty PRN Reason Stop Dose Admin Doxycycline Monohydrate 100 mg 12/19/23 07:00 12/19/23 07:43 Doxycycline Monohydrate 100 Mg Capsule PO 12/19/23 07:01 100 mg ONCE ONE Administration Medical Decision Making Medical Decision Making [facility] Narrative: The patient is a physically healthy 23-year-old who presents today with the 4th ER visit in 1 month. On November 24 presented reporting cocaine and marijuana use and also concerned about sexually transmitted disease. He was positive for GC and chlamydia and was treated with ceftriaxone and a course of doxycycline. He returned on December 09 with complaints of chest pain and anxiety. He was also concerned about whether he had been sufficiently treated for his STIs and I believe he was given a 2nd shot of ceftriaxone and another prescription for doxycycline. He present 2 days ago with complaints of anxiety and specifically anxiety about taking doxycycline. He was treated with lorazepam at that time. He returns tonight by ambulance again with the description of anxiety and panic possibly related to his concern about doxycycline. My overall impression is that the patient is quite disorganized. I recommended that he speak to a mental health counselor. He told me that he has not interested in speaking to a mental health counselor. He has not expressing any suicidal or homicidal ideation and he has not describing any behavior that seems to be suggesting he is so disorganized that he is at risk. He is well-groomed. The patient slept tonight in the emergency department. I made multiple recommendations for evaluation by the care team. He consistently said that he would rather talk to family and friends. I believe he has a good relationship with his father. Ultimately I did not feel there were grounds for a section 12 and he was ultimately discharged. At discharge he asked for another prescription for doxycycline because he seems to have this placed his previous doxycycline. Lab Data 12/18/23 20:25 12/18/23 20:25 Labs: Lab Results 12/18/23 Range/Units 20:25 WBC 5.3 (4.8-10.8) X10*3/uL RBC 4.76 (4.60-5.80) X10*6/uL Hgb 13.8 L (14.0-18.0) g/dl Hct 40.6 L (42.0-52.0) % MCV 85.3 (80.0-98.0) fL MCH 29.0 (27.0-33.0) pg MCHC 34.0 (31.0-36.0) g/dl RDW 12.7 (11.0-16.0) % Plt Count 265 (160-400) X10*3/uL MPV 8.7 L (9.4-12.4) fL Immature Gran % (Auto) 0.0 (0.0-0.4) % Neut % (Auto) 53.8 (45-73) % Lymph % (Auto) 36.1 (20-40) % Mckenzie % (Auto) 9.3 (2-11) % Eos % (Auto) 0.2 (0-4) % Baso % (Auto) 0.6 (0-2) % Lymph # (Auto) 1.9 (1.2-4.9) X10*3/uL Mckenzie # (Auto) 0.5 (0.1-1.2) X10*3/uL Eos # (Auto) 0.0 (0.0-0.4) X10*3/uL Baso # (Auto) 0.0 (0.0-0.2) X10*3/uL Abs Immat Gran (auto) 0.00 (0.00-0.03) X10*3/uL Absolute Neuts (auto) 2.9 (2.0-8.3) x10*3/uL Absolute Nucleated RBC 0.000 (0.0-0.012) X10*3/uL Nucleated RBC % (auto) 0.0 (0.0-0.2) /100WBC Sodium 142 (135-145) mmol/L Potassium 3.3 (3.3-5.1) mmol/L Chloride 104 (96-108) mmol/L Carbon Dioxide 26 (22-29) mmol/L Anion Gap 15 (12-20) BUN 13 (9-16) mg/dL Creatinine 1.02 (0.5-1.4) mg/dL Estim Creat Clear Calc 104.1 Estimated GFR > 60 Random Glucose 93 (60-115) mg/dL Calcium 10.0 (8.4-10.2) mg/dL Troponin I High Sens < 2.7 (<3.5-35.0) ng/L Discharge Plan Discharge Clinical Impression: Anxiety, Chest discomfort, Palpitations Patient Disposition: Home, Self-Care Additional Instructions: Please continue and finish the course of doxycycline. I believe you have been experiencing a lot of symptoms of anxiety and panic. I think that talking to a behavioral health professional might be helpful. Please consider doing this in the future. If you do not wish to talk to someone here in the emergency room it can be done over the phone. The [facility] has a 24 hour hotline you can use if you wish to speak with someone about how you are feeling. The phone number is [phone]. Please continue your efforts at getting a primary care doctor. Return to the emergency room if you are feeling worse. Prescriptions: New doxycycline monohydrate 100 mg capsule 100 mg PO BID Qty: 20 0RF No Action azithromycin 250 mg tablet See Rx Instructions .ROUTE .COMPLEX Qty: 6 0RF Rx Instructions: take 500 mg today (day 1), then 250 mg for 4 days (days 2-5) ibuprofen 800 mg tablet 800 mg PO Q8H PRN (Reason: pain) Qty: 14 0RF acetaminophen [Tylenol Extra Strength] 500 mg tablet 1,000 mg PO QID PRN (Reason: fever or pain) Qty: 14 0RF doxycycline hyclate 100 mg tablet 100 mg PO Q12H 10 Days Qty: 20 0RF doxycycline hyclate 100 mg tablet 100 mg PO BID 10 Days Qty: 20 0RF doxycycline hyclate 100 mg tablet 100 mg PO BID Qty: 14 0RF doxycycline hyclate 100 mg capsule 100 mg PO BID 10 Days Qty: 20 0RF
[2023-12-18 23:41] VITALS: BP 125/58; PULSE 62; RESP 14; TEMP 36.7; O2SAT 100
[2023-12-19 01:49] VITALS: BP 113/68; PULSE 67; RESP 16; TEMP 36.4; O2SAT 93
--- NOTE | 2023-12-19 02:18 | MHC.EDTECH ---
THIS TECH WALK PATIENT PER DOCTOR ORDER PATIENT HAD A STEADY GATE PATIENT HEART RATE IS AT 98 PLAN OF CARE ONGOING
[2023-12-19 06:08] VITALS: BP 106/54; PULSE 53; RESP 16; TEMP 36.6; O2SAT 100
[2023-12-19] MEDS: Doxycycline Monohydrate 100 MG CAPSULE PO (07:43)
[2023-12-19 07:51] VITALS: BP 116/64; PULSE 76; RESP 20; TEMP 36.5; O2SAT 99
--- NOTE | 2023-12-19 07:55 | PC.NURSE ---
patient a&ox3, pt notified he had doxy ordered to take, pt began stating he was anxious and afraid to take the medication, pt requested toothbrush/toothpaste, obtained and pt went to bathroom to brush teeth, pt returned stating he wasnt wanting to take the medication because it makes him have nausea and vomit, this nurse educated the patient that he can take the medication with food if needed. This nurse obtained a sandwich and juice for patient to eat prior to taking the medication, he then was coached to take medication as he sat at bedside looking at the dose in his hand for 10 minutes. patient took medication with this nurse at bedside, will continue to monitor for s/s of nausea/vomiting.
[2023-12-19 08:46] VITALS: BP 116/64; PULSE 76; RESP 20; TEMP 36.5; O2SAT 99
== END 2023-12-19 08:48 | disposition home or self-care (01) ==
PROVIDERS: Emergency Provider Emergency Medicine
DX: R07.89 Other chest pain (principal); R11.2 Nausea with vomiting, unspecified; F41.1 Generalized anxiety disorder; F43.0 Acute stress reaction; R00.2 Palpitations; Z79.899 Other long term (current) drug therapy
CPT/HCPCS: 36415; 80048; 84484; 85025; 93005; 99284; 99285

== ENCOUNTER → 2023-12-18 20:07 | Outpatient (BNV) | payer SELFPAY | PROVIDERS: Emergency Provider Emergency Medicine; Visit Provider Internal Medicine | DX: R11.2 Nausea with vomiting, unspecified (principal); R94.31 Abnormal electrocardiogram [ECG] [EKG] | CPT/HCPCS: 93010 ==